=== PATIENT | female | born 1965 | race Caucasian/White ===

== ENCOUNTER 2020-01-10 07:33 | Outpatient (CLI) | payer OTHER, SELFPAY ==
--- NOTE | ~2020-01-10 | MM_ITS ---
EXAMINATION: MM screening abhishek BI w juan m HISTORY: Screening mammogram TECHNIQUE: Craniocaudal and mediolateral oblique 3-D tomosynthesis images were obtained and synthetic 2-D images were generated. CAD analysis was submitted and interpreted. COMPARISON: Comparison to multiple prior studies sequentially, with oldest reviewed study dated 08/11. BREAST PARENCHYMAL COMPOSITION: The breasts are almost entirely fatty. FINDINGS: There is no evidence of suspicious mass, calcification, or architectural distortion to sugg est malignancy in either breast. There has been no suspicious interval change. IMPRESSION: 1. No mammographic evidence of malignancy. 2. Recommend routine screening mammography in one year. BI-RADS Category 1: Negative Reviewed, dictated and finalized at location A.
== END 2020-01-10 07:34 | disposition home or self-care (01) ==
PROVIDERS: PCP Internal Medicine; Visit Provider Internal Medicine
DX: Z12.31 Encounter for screening mammogram for malignant neoplasm of breast (principal)
CPT/HCPCS: 77063; 77067

== ENCOUNTER 2020-05-18 09:56 | Outpatient (CLI) | payer OTHER, SELFPAY ==
--- NOTE | ~2020-05-18 | US_ITS ---
EXAMINATION: US venous doppler LE RT DATE: 05/18/2020 10:28 INDICATION: Right lower limb swelling TECHNIQUE: Rios scale images without and with compression and Doppler images of the right lower extre mity veins were obtained. COMPARISON: None FINDINGS: The right common femoral vein, profunda femoral vein, femoral vein, popliteal vein, peronea l trunk, posterior tibial veins, and greater saphenous vein are patent. IMPRESSION: 1. Patent right lower extremity veins. No evidence of deep venous thrombosis. Reviewed, dictated and finalized at location A. 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
== END 2020-05-18 09:57 | disposition home or self-care (01) ==
PROVIDERS: PCP Internal Medicine; Visit Provider Internal Medicine
DX: M79.661 Pain in right lower leg (principal); M79.89 Other specified soft tissue disorders
CPT/HCPCS: 93971

== ENCOUNTER 2020-09-04 11:17 | Outpatient (CLI) | payer OTHER, SELFPAY ==
[2020-09-04 12:26] LABS: SARS-CoV-2 Ag Negative (Negative)
[2020-09-04 12:26] LABS: Influenza Control Valid (Valid)
[2020-09-05 14:41] LABS: SARS-CoV-2 RNA PCR Negative
== END 2020-09-04 11:18 | disposition home or self-care (01) ==
LOC: CHSLAB 11:19
PROVIDERS: PCP Internal Medicine; Visit Provider Internal Medicine
DX: R53.83 Other fatigue (principal); R09.81 Nasal congestion
CPT/HCPCS: 87426; 87804; C9803; U0003; U0005

== ENCOUNTER → 2020-12-11 02:11 | Outpatient (CLI) | payer OTHER, SELFPAY ==
[2020-12-11 17:04] LABS: SARS-CoV-2 RNA PCR Negative
== END ==
PROVIDERS: PCP Internal Medicine; Visit Provider Surgery
DX: Z01.812 Encounter for preprocedural laboratory examination (principal); Z20.822 Contact with and (suspected) exposure to COVID-19
CPT/HCPCS: C9803; U0003; U0005

== ENCOUNTER 2020-12-14 00:51 | Day surgery (SDC) | payer OTHER, SELFPAY ==
[2020-11-30 10:17] VITALS: BMI 31.3
[2020-12-14 06:46] VITALS: BP 167/76; PULSE 77; RESP 20; TEMP 36.1; O2SAT 99
[2020-12-14] MEDS: LACTATED RINGERS 1,000 ML 150 ML IV CONT (06:54)
--- NOTE | 2020-12-14 07:31 | WPDANESEPPF ---
Anes - Initial Pre Proc Eval Procedure: Operation Date: 12/14/20 08:00 Proposed Procedures p Esophagogastroduodenoscopy - Rayshawn Samuel DO Date/Time: 12/14/20 07:31 Surgeon: Rayshawn Samuel DO Pre Op Diagnosis: dysphagia Patient Data Age: 55 Gender: F Height: 5 ft 6 in Weight: 88.8 kg Last Vital Signs Temp 97.0 F L 12/14/20 06:46 Pulse 77 12/14/20 06:46 Resp 20 12/14/20 06:46 BP 167/76 H 12/14/20 06:46 Pulse Ox 99 12/14/20 06:46 Allergies Allergy/AdvReac Type Severity Reaction Status Date / Time latex Allergy Unknown Verified 12/14/20 06:43 aluminum hydroxide AdvReac Mild GI Verified 12/14/20 06:43 [From Mylanta] Cocktail- Confusion/Tongue Swelling atropine [From ] AdvReac Mild GI Verified 12/14/20 06:43 Cocktail- Confusion/Tongue Swelling calcium carbonate AdvReac Mild GI Verified 12/14/20 06:43 [From Mylanta] Cocktail- Confusion/Tongue Swelling hydrocodone AdvReac Mild Nausea and Verified 12/14/20 06:43 Vomiting hyoscyamine [From ] AdvReac Mild GI Verified 12/14/20 06:43 Cocktail- Confusion/Tongue Swelling lidocaine AdvReac Mild GI Verified 12/14/20 06:43 Cocktail- Confusion/Tongue Swelling magnesium hydroxide AdvReac Mild GI Verified 12/14/20 06:43 [From Mylanta] Cocktail- Confusion/Tongue Swelling phenobarbital [From ] AdvReac Mild GI Verified 12/14/20 06:43 Cocktail- Confusion/Tongue Swelling scopolamine [From ] AdvReac Mild GI Verified 12/14/20 06:43 Cocktail- Confusion/Tongue Swelling simethicone [From Mylanta] AdvReac Mild GI Verified 12/14/20 06:43 Cocktail- Confusion/Tongue Swelling adhesive AdvReac Unknown RASH Verified 12/14/20 06:43 moxifloxacin AdvReac Unknown N&V Verified 12/14/20 06:43 GI COCKTAIL AdvReac Mild CONFUSION, Uncoded 12/14/20 06:43 TONGUE SWELLING Home Medications Medication Instructions Recorded Confirmed Type atorvastatin 40 mg PO HS 11/30/20 11/30/20 History dicyclomine 10 mg PO DAILY PRN 11/30/20 12/14/20 History estradiol 1 mg PO DAILY 11/30/20 12/14/20 History omeprazole 20 mg PO DAILY 11/30/20 11/30/20 History Patient hx anesthesia problems: none Family hx anesthesia problems: none PMFSH Past Medical History Medical History (Updated 12/14/20 @ 07:28 by Shane Mendez MD) GERD (gastroesophageal reflux disease) Hyperlipidemia Social History Social History Alcohol intake: current Drinks per week: 3 Living arrangements: with family Gender identity (if verbalized by the patient): Female Spiritual care concerns: No Anes - Eval Final PreProcedure Day of Procedure 12/14/20 07:31 Patient weight: overweight Heart: regular rate and rhythm Lungs: clear to auscultation Airway: Mallampati scale class II Neurological: alert and oriented Last oral intake: >/= 8 hours ASA classification: II Emergent: no Anesthetic plan: proceed Anesthesia type and monitoring: general GIVS and standard monitoring Informed Consent: The patient's anesthetic plan and its attendant risks and benefits were discussed with the patient/family/POA. Questions were solicited and answers provided to the satisfaction of the patient/family/POA.
--- NOTE | 2020-12-14 07:58 | PM.IMHP ---
H&P: HPI History of Present Illness Date/Time: 12/14/20 07:58 Chief Complaint: dysphagia Narrative: this is a 55-year-old woman who presents with dysphagia with solid foods and pills. She denies any difficulty drinking liquids. She has had this in the past and has previously had dilation done. Does have some occasional epigastric pain and has occasional reflux symptoms. She denies any significant alcohol use and denies tobacco abuse. She does take a daily omeprazole. Review of Systems Review of Systems: All systems reviewed & are unremarkable except as noted in HPI and below Constitutional: Constitutional: Denies chills, Denies fever(s), Denies headache(s) and Denies weight loss Eyes: Eyes: Denies change in vision ENT: Denies dizziness, Denies headache(s), Denies neck mass and Denies throat swelling Cardiovascular: Cardiovascular: Denies chest pain, Denies lightheadedness and Denies dyspnea Respiratory: Respiratory: Denies cough, Denies dyspnea and Denies wheezing Gastrointestinal: Gastrointestinal: Reports as per HPI, Denies change in bowel habits, Denies nausea and Denies vomiting Genitourinary: Genitourinary: Denies hematuria and Denies dysuria Musculoskeletal: Musculoskeletal: Reports as per HPI Integumentary/Breasts: Skin/Breast: Reports as per HPI Neurologic: Denies dizziness and Denies headache(s) Allergic/Immunologic: Allergic/Immunologic: Denies throat swelling and Denies wheezing [facility] Past Medical History Medical History (Updated 12/14/20 @ 08:00 by Rayshawn Samuel DO) GERD (gastroesophageal reflux disease) Hyperlipidemia Social History Social History Alcohol intake: current Drinks per week: 3 Living arrangements: with family Gender identity (if verbalized by the patient): Female Spiritual care concerns: No Meds Home Medications and Allergies Home Medications Medication Instructions Recorded Confirmed Type atorvastatin 40 mg PO HS 11/30/20 11/30/20 History dicyclomine 10 mg PO DAILY PRN 11/30/20 12/14/20 History estradiol 1 mg PO DAILY 11/30/20 12/14/20 History omeprazole 20 mg PO DAILY 11/30/20 11/30/20 History Allergies Allergy/AdvReac Type Severity Reaction Status Date / Time latex Allergy Unknown Verified 12/14/20 06:43 aluminum hydroxide AdvReac Mild GI Verified 12/14/20 06:43 [From Mylanta] Cocktail- Confusion/Tongue Swelling atropine [From ] AdvReac Mild GI Verified 12/14/20 06:43 Cocktail- Confusion/Tongue Swelling calcium carbonate AdvReac Mild GI Verified 12/14/20 06:43 [From Mylanta] Cocktail- Confusion/Tongue Swelling hydrocodone AdvReac Mild Nausea and Verified 12/14/20 06:43 Vomiting hyoscyamine [From ] AdvReac Mild GI Verified 12/14/20 06:43 Cocktail- Confusion/Tongue Swelling lidocaine AdvReac Mild GI Verified 12/14/20 06:43 Cocktail- Confusion/Tongue Swelling magnesium hydroxide AdvReac Mild GI Verified 12/14/20 06:43 [From Mylanta] Cocktail- Confusion/Tongue Swelling phenobarbital [From ] AdvReac Mild GI Verified 12/14/20 06:43 Cocktail- Confusion/Tongue Swelling scopolamine [From ] AdvReac Mild GI Verified 12/14/20 06:43 Cocktail- Confusion/Tongue Swelling simethicone [From Mylanta] AdvReac Mild GI Verified 12/14/20 06:43 Cocktail- Confusion/Tongue Swelling adhesive AdvReac Unknown RASH Verified 12/14/20 06:43 moxifloxacin AdvReac Unknown N&V Verified 12/14/20 06:43 GI COCKTAIL AdvReac Mild CONFUSION, Uncoded 12/14/20 06:43 TONGUE SWELLING Vital Signs Vital Signs - 24 hr 12/14/20 06:46 Temperature 36.1 C L Pulse Rate 77 Respiratory Rate 20 Blood Pressure 167/76 H Pulse Oximetry 99 Exam Const: General: no acute distress and alert Orientation/consciousness: patient oriented x3 HENMT: Head: normocephalic and atraumatic Ears: hearing
[2020-12-14 08:21] VITALS: BP 111/76; PULSE 70; RESP 19; O2SAT 96
[2020-12-14 08:31] VITALS: BP 123/67; PULSE 82; RESP 21; O2SAT 96
[2020-12-14 08:41] VITALS: BP 120/78; PULSE 68; RESP 18; O2SAT 96
== END 2020-12-14 09:00 | disposition home or self-care (01) ==
PROVIDERS: PCP Internal Medicine; Visit Provider Surgery
PROC: 0DJ08ZZ Inspection of Upper Intestinal Tract, Via Natural or Artificial Opening Endoscopic (ICD-10-PCS; CPT 43235; principal; 2020-12-14 08:00)
DX: R13.10 Dysphagia, unspecified (principal); K29.50 Unspecified chronic gastritis without bleeding; K31.7 Polyp of stomach and duodenum; K21.9 Gastro-esophageal reflux disease without esophagitis; E78.5 Hyperlipidemia, unspecified
CPT/HCPCS: 43239; 87081; 88305; J2704; J7120

== ENCOUNTER 2021-02-21 12:48 | Emergency (ER) | payer OTHER, SELFPAY ==
--- NOTE | ~2021-02-21 | XR_ITS ---
EXAMINATION: XR femur RT min 2V INDICATION: Right leg pain TECHNIQUE: Two views of the right femur are obtained on four radiographs COMPARISON: None available FINDINGS: Bone alignment is normal. There is no fracture. Mild osteoarthritis is noted in the knee. IMPRESSION: 1. No acute osseous abnormality. Reviewed, dictated and finalized at location B.
[2021-02-21 12:53] VITALS: BP 124/73; PULSE 67; RESP 20; TEMP 36.3; O2SAT 98
--- NOTE | 2021-02-21 13:04 | ED.LOWEXIN ---
HPI - Extremity Injury (Lower) General Chief Complaint: Extremity Injury, Lower Stated Complaint: back of knee/leg pain Time Seen by Provider: 02/21/21 13:14 Source: patient Mode of arrival: wheelchair Limitations: no limitations History of Present Illness HPI Narrative: 55-year-old woman comes in today complaining of pain in the posterior right upper leg that started just prior to arrival. 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 She has been unable to bear weight since the injury. She states that she has some mild numbness and tingling in her right foot but denies any back pain, knee pain, anterior hip pain, and did not hit her head, lose consciousness or have any other injuries. MD complaint: thigh injury Onset (ago): minute(s) (30) Injury: Right: hip Type of Injury: hyperflexion Place: work Severity: moderate Relieving factors: rest Exacerbating factors: weight bearing, movement and palpation Context: fall Associated symptoms: tingling Other symptoms: none Related Data Home Medications Medication Instructions Recorded Confirmed atorvastatin 40 mg PO HS 11/30/20 02/21/21 dicyclomine 10 mg PO DAILY PRN 11/30/20 02/21/21 estradiol 1 mg PO DAILY 11/30/20 02/21/21 omeprazole 20 mg PO DAILY 11/30/20 02/21/21 amoxicillin 500 mg PO TID 02/21/21 02/21/21 ketoconazole 1 applic TOPICAL BID 02/21/21 02/21/21 valacyclovir 1,000 mg PO TID 02/21/21 02/21/21 Allergies Allergy/AdvReac Type Severity Reaction Status Date / Time latex Allergy Unknown Verified 02/21/21 13:09 aluminum hydroxide AdvReac Mild GI Verified 02/21/21 13:09 [From Mylanta] Cocktail- Confusion/Tongue Swelling atropine [From ] AdvReac Mild GI Verified 02/21/21 13:09 Cocktail- Confusion/Tongue Swelling calcium carbonate AdvReac Mild GI Verified 02/21/21 13:09 [From Mylanta] Cocktail- Confusion/Tongue Swelling hydrocodone AdvReac Mild Nausea and Verified 02/21/21 13:09 Vomiting hyoscyamine [From ] AdvReac Mild GI Verified 02/21/21 13:09 Cocktail- Confusion/Tongue Swelling lidocaine AdvReac Mild GI Verified 02/21/21 13:09 Cocktail- Confusion/Tongue Swelling magnesium hydroxide AdvReac Mild GI Verified 02/21/21 13:09 [From Mylanta] Cocktail- Confusion/Tongue Swelling phenobarbital [From ] AdvReac Mild GI Verified 02/21/21 13:09 Cocktail- Confusion/Tongue Swelling scopolamine [From ] AdvReac Mild GI Verified 02/21/21 13:09 Cocktail- Confusion/Tongue Swelling simethicone [From Mylanta] AdvReac Mild GI Verified 02/21/21 13:09 Cocktail- Confusion/Tongue Swelling adhesive AdvReac Unknown RASH Verified 02/21/21 13:09 moxifloxacin AdvReac Unknown N&V Verified 02/21/21 13:09 GI COCKTAIL AdvReac Mild CONFUSION, Uncoded 02/21/21 13:09 TONGUE SWELLING Review of Systems Review of Systems: All systems reviewed & are unremarkable except as noted in HPI and below ENT: Denies dizziness Cardiovascular: Cardiovascular: Denies chest pain and Denies radiating jaw, neck or arm pain Respiratory: Respiratory: Denies cough and Denies dyspnea Gastrointestinal: Gastrointestinal: Denies nausea and Denies vomiting Genitourinary: Genitourinary: Denies dysuria and Denies urinary incontinence Musculoskeletal: Musculoskeletal: Reports as per HPI, Denies back pain, Denies arthralgias and Denies joint swelling Integumentary/Breasts: Skin/Breast: Denies pruritus, Denies rash and Denies skin ulcer Neurologic: Denies vertigo, Denies dizziness and Denies syncope Hematologic/Lymphatic: Hematologic/Lymphatic: Denies easy bleeding and Denies easy bruising [facility] Past Medical History Medical History (Updated 02/21/21 @ 13:28 by Catarino Aguirre MD) GERD (gastroesophageal reflux disease
[2021-02-21] MEDS: HYDROcodone/acetaminophen (*CRX) 5-325 MG TABLET 1 TAB PO (13:35)
[2021-02-21 14:30] VITALS: BP 131/81; PULSE 63; RESP 20; TEMP 36; O2SAT 95
== END 2021-02-21 14:30 | disposition home or self-care (01) ==
PROVIDERS: Emergency Provider Emergency Medicine; PCP Internal Medicine
DX: S76.311A Strain of muscle, fascia and tendon of the posterior muscle group at thigh level, right thigh, initial encounter (principal); W01.0XXA Fall on same level from slipping, tripping and stumbling without subsequent striking against object, initial encounter
CPT/HCPCS: 73552; 99283; A9270

== ENCOUNTER 2021-03-10 08:40 | Outpatient (CLI) | payer OTHER, SELFPAY ==
--- NOTE | ~2021-03-10 | MR_ITS ---
EXAMINATION: MR knee RT wo con DATE: 03/10/2021 10:12 INDICATION: Right knee pain and swelling post fall 2 1/2 weeks prior. TECHNIQUE: Magnetic resonance imaging (MRI) of the right knee was performed without intravenous contr ast. Sequences included coronal PD-weighted FSE, coronal PD-weighted FS FSE, sagittal T2-weighted FS E, sagittal PD-weighted FS FSE and axial PD weighted fat saturated FSE. COMPARISON: None. FINDINGS: Medial compartment: Medial meniscus is normal. Shallow chondral ulceration and fissuring along the anterior weightbearing medial femoral condyle. Lateral compartment: Lateral meniscus is normal. There is some chondral swelling at the central aspect of the lateral tibi al plateau with mild chondral surface regularity and partial-thickness fissuring at the central to po sterior aspect of the lateral tibial plateau. Partial thickness cartilage loss with smooth chondral s urface along the weightbearing lateral femoral condyle. Patellofemoral compartment: Deep chondral ulceration with subtle underlying cortical irregularity at the central aspect of the pa tellar apical ridge with delaminating tearing extending a few mm from the deep margins of the region of ulceration. Additional deep chondral ulceration with minimal underlying cortical irregularity at t he inferior aspect of the medial trochlea. Ligaments and tendons: Anterior and posterior cruciate ligaments are normal. The medial collateral ligament and fibular margret ateral ligament complex are normal. The extensor mechanism is normal. The visualized medial and later al hamstring tendons as well as the iliotibial band are normal. Fluid: Physiologic amount of fluid in the joint space. 3 mm loose osteochondral body in the recess overlying the anterior root of the lateral meniscus. Osseous/other: Normal marrow signal. No fracture or pathologic marrow replacing process. There is mild edema in the superficial suprapatellar fat pad which can be seen with fat pad impingement syndrome. IMPRESSION: 1. 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 2. Mild edema in the superficial suprapatellar fat pad consistent with fat pad impingement syndrome. Reviewed, dictated and finalized at location A. IMPRESSION: 1. Mild tricompartmental osteoarthritis most notable for high-grade chondromala marvin at the patellar apical ridge and inferior aspect of the medial trochlea. 2. Mild edema in the superficial suprapatellar fat pad consistent with fat pad impingement syndrome.
--- NOTE | ~2021-03-10 | MR_ITS ---
EXAMINATION: MR femur RT wo con DATE: 03/10/2021 10:12 INDICATION: Right thigh pain TECHNIQUE: Magnetic resonance imaging (MRI) of the right thigh/femur was performed without intravenou s contrast. A marker was placed over the mass. Sequences included axial T1-weighted FSE, axial T2-we ighted FS FSE, coronal T1-weighted FSE, coronal T2-weighted FS FSE, sagittal T1-weighted FSE and sagi ttal T2-weighted FS FSE. Precontrast axial T1-weighted FS FSE and post contrast axial, sagittal and c oronal T1-weighted FS FSE were also obtained. COMPARISON: None. FINDINGS: There is a high-grade partial if not complete tear of the right biceps femoris located between the pr oximal and distal myotendinous junctions centered approximately 13 cm above the level of the knee savannah nt line. There is undulating course of the muscle fibers in the distal muscle belly consistent with s ome retraction. There is a small amount of fluid at the site of the tear but no clearly defined corre sponding proximal and distal tear margins are identified to quantitatively assess the degree of retra ction of the torn fibers which is likely on the order of a couple subcentimeter. There is additional feathery muscular edema surrounding an additional partial tear in the semimembranosus muscle belly si tuated between the proximal and distal myotendinous junctions. The tear is centered approximately 17 cm proximal to the level of the knee joint line but also without a clearly defined tear plane. There is normal bone marrow signal throughout with no fracture or pathologic marrow replacing process. The neurovascular structures in the right thyroid unremarkable. IMPRESSION: 1. Moderate to high-grade strains of the right biceps femoris and semimembranosus muscles. Reviewed, dictated and finalized at location A. IMPRESSION: 1. Moderate to high-grade strains of the right biceps femoris and semimembranos us muscles.
== END 2021-03-10 08:41 | disposition home or self-care (01) ==
PROVIDERS: PCP Internal Medicine; Visit Provider Internal Medicine
DX: M79.651 Pain in right thigh (principal); M25.561 Pain in right knee
CPT/HCPCS: 73718; 73721

== ENCOUNTER 2021-03-26 13:11 | Outpatient (CLI) | payer OTHER, SELFPAY ==
--- NOTE | ~2021-03-26 | US_ITS ---
EXAMINATION: US venous doppler LE RT EXAM DATE: 03/26/2021 13:58 INDICATION: Right leg swelling. TECHNIQUE: Multiple grayscale, color flow and Doppler images of the right lower extremity deep venous system were obtained and reviewed. Comparison is made to prior examination from 05/18/2020. FINDINGS: The right common femoral, femoral and profunda veins demonstrate normal color flow, respira tory variation, augmentation and compressibility. Compressibility, color flow confirmed within the r ight popliteal, posterior tibial, peroneal, and greater saphenous veins. IMPRESSION: 1. No right lower extremity deep venous thrombosis. Reviewed, dictated and finalized at location B.
== END 2021-03-26 13:12 | disposition home or self-care (01) ==
PROVIDERS: PCP Internal Medicine
DX: M79.89 Other specified soft tissue disorders (principal)
CPT/HCPCS: 93971

== ENCOUNTER 2021-03-28 16:17 | Outpatient (CLI) | payer OTHER, SELFPAY ==
--- NOTE | ~2021-03-28 | MM_ITS ---
EXAMINATION: MM screening abhishek BI w juan m HISTORY: Screening TECHNIQUE: Craniocaudal and mediolateral oblique 3-D tomosynthesis images were obtained and synthetic 2-D images were generated. CAD analysis was submitted and interpreted. COMPARISON: Comparison to multiple prior studies sequentially, with oldest reviewed study dated 08/31. BREAST PARENCHYMAL COMPOSITION: There are scattered areas of fibroglandular density. FINDINGS: There is no evidence of suspicious mass, calcification, or architectural distortion to sugg est malignancy in either breast. There has been no suspicious interval change. IMPRESSION: 1. No mammographic evidence of malignancy. 2. Recommend routine screening mammography in one year. BI-RADS Category 1: Negative Reviewed, dictated and finalized at location A.
== END 2021-03-28 16:18 | disposition home or self-care (01) ==
LOC: ANHIMG 16:19
PROVIDERS: PCP Internal Medicine; Visit Provider Internal Medicine
DX: Z12.31 Encounter for screening mammogram for malignant neoplasm of breast (principal)
CPT/HCPCS: 77063; 77067

== ENCOUNTER 2021-04-24 15:48 | Outpatient (RCR) | payer OTHER, SELFPAY ==
--- NOTE | 2021-04-24 17:01 | PTOPEVAL ---
Thank you for referring Koki Bell to [facility][Note 3].? The patient is scheduled to be seen for therapy? ____x/week for ___ weeks. Please review, sign, date and return this plan of care LORRAINE. I agree with and certify that the following plan of care is medically necessary. Referring Physician Date Admitting Provider: Attending Provider: Curtis Rocha Referring Provider: *PT Outpatient Evaluation Start: 04/24/21 16:01 Freq: Status: Active Protocol: Document 04/24/21 16:02 ACR (Rec: 04/24/21 17:01 ACR [id number]) Therapy Assessment Status Assessment Status Assessment Status Evaluation Outpatient Past Medical History Neurological History Hx Neurological Disorders No Significant History Cardiovascular History Hx Hypercholesterolemia Yes Respiratory History Hx Respiratory Disorders No Significant History Gastrointestinal History Hx Gastroesophageal Reflux Disease Yes Hx Irritable Bowel Yes Hx Other Gastrointestinal Disorders Yes: rectocele repair Genitourinary History Hx Genitourinary Disorders No Significant History Musculoskeletal History Hx Musculoskeletal Disorders No Significant History Hematological History Hx Hematological Disorders No Significant History Endocrine History Hx Endocrine Disorders No Significant History HEENT History Hx Sinus Problems Yes Integumentary History Hx Skin Disorders No Significant History Psychosocial History Hx Psychiatric Disorders No Significant History Pain History History of Any Previous or Ongoing No Significant History Instance of Pain Anesthesia History Hx Anesthesia Reactions No Significant History Evaluation Information Problem Diagnosis R hamstring partial tear Onset 02/21/21 Subjective Information Patient states that she was Query Text:As Reported By Patient/ walking down the [place] and Family slipped on water and her leg went out in front of her and she fell. Patient states she went to the ER. Patient states she is back to work now with restrictions of sitting when tightness of pain occur. Patient states that bending over to pick something up, getting situated to sleep and drive, navigating steps and prolonged walking/standing are the most difficulty. 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
--- NOTE | 2021-05-23 13:42 | PTOPEVAL ---
Thank you for referring Koki Bell to [facility].? The patient is scheduled to be seen for therapy? ____x/week for ___ weeks. Please review, sign, date and return this plan of care LORRAINE. I agree with and certify that the following plan of care is medically necessary. Referring Physician Date Admitting Provider: Attending Provider: Curtis Rocha Referring Provider: *PT Outpatient Evaluation Start: 04/24/21 16:01 Freq: Status: Active Protocol: Document 05/23/21 07:30 [facility] (Rec: 05/23/21 13:41 [id number] Therapy Assessment Status Assessment Status Assessment Status Re-evaluation Outpatient Past Medical History Neurological History Hx Neurological Disorders No Significant History Cardiovascular History Hx Hypercholesterolemia Yes Respiratory History Hx Respiratory Disorders No Significant History Gastrointestinal History Hx Gastroesophageal Reflux Disease Yes Hx Irritable Bowel Yes Hx Other Gastrointestinal Disorders Yes: rectocele repair Genitourinary History Hx Genitourinary Disorders No Significant History Musculoskeletal History Hx Musculoskeletal Disorders No Significant History Hematological History Hx Hematological Disorders No Significant History Endocrine History Hx Endocrine Disorders No Significant History HEENT History Hx Sinus Problems Yes Integumentary History Hx Skin Disorders No Significant History Psychosocial History Hx Psychiatric Disorders No Significant History Pain History History of Any Previous or Ongoing No Significant History Instance of Pain Anesthesia History Hx Anesthesia Reactions No Significant History Evaluation Information Problem Diagnosis R hamstring partial tear Onset 02/21/21 Subjective Information patient reports she is Query Text:As Reported By Patient/ improving. she reports however Family , she still has pain with lifting and walking. 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 she reports she is back at work, but has to take several rest/sitting breaks. she reports she is not back at full performance, and continues to feel a knot in the R posterior thigh. Pain Assessment Timing of Pain Assessment Timing of Pain Assessment Assessment Pain Scale
== END 2021-06-26 16:13 | disposition home or self-care (01) ==
LOC: CHSPT 15:48
PROVIDERS: PCP Internal Medicine
DX: S76.311A Strain of muscle, fascia and tendon of the posterior muscle group at thigh level, right thigh, initial encounter (principal)
CPT/HCPCS: 97014; 97016; 97110; 97140; 97161; 97530; G0283

== ENCOUNTER 2021-11-21 11:52 | Outpatient (CLI) | payer OTHER, SELFPAY | END 2021-11-21 11:53 | disposition home or self-care (01) | LOC: CHSAUDIO 11:54 | PROVIDERS: PCP Internal Medicine; Visit Provider Internal Medicine | DX: H93.13 Tinnitus, bilateral (principal) | CPT/HCPCS: 92557; 92567 ==

== ENCOUNTER 2021-12-04 14:53 | Outpatient (RCR) | payer OTHER, SELFPAY ==
--- NOTE | 2021-12-04 16:12 | PTOPEVAL ---
Thank you for referring Koki Bell to [facility].? The patient is scheduled to be seen for therapy? __2__x/week for 8 visits. Please review, sign, date and return this plan of care LORRAINE. I agree with and certify that the following plan of care is medically necessary. Referring Physician Date Admitting Provider: Attending Provider: Nazario Carranza MD Referring Provider: *PT Outpatient Evaluation Start: 12/04/21 15:16 Freq: Status: Active Protocol: Document 12/04/21 15:17 LUIS (Rec: 12/04/21 16:11 LUIS [email or web address]) Therapy Assessment Status Assessment Status Assessment Status Evaluation Outpatient Past Medical History Neurological History Hx Neurological Disorders No Significant History Cardiovascular History Hx Hypercholesterolemia Yes Respiratory History Hx Respiratory Disorders No Significant History Gastrointestinal History Hx Gastroesophageal Reflux Disease Yes Hx Irritable Bowel Yes Hx Other Gastrointestinal Disorders Yes: rectocele repair Genitourinary History Hx Genitourinary Disorders No Significant History Musculoskeletal History Hx Musculoskeletal Disorders No Significant History Hematological History Hx Hematological Disorders No Significant History Endocrine History Hx Endocrine Disorders No Significant History HEENT History Hx Sinus Problems Yes Integumentary History Hx Skin Disorders No Significant History Psychosocial History Hx Psychiatric Disorders No Significant History Pain History History of Any Previous or Ongoing No Significant History Instance of Pain Anesthesia History Hx Anesthesia Reactions No Significant History Evaluation Information Problem Diagnosis left sciatica Onset 10/04/21 Subjective Information Pt. reports she developed left Query Text:As Reported By Patient/ buttock and left leg pain and Family numbness about 2 months ago. She reports no change in her symptoms except since give prednisone on 11/30/21. She reports that pain is still present but not as intense. She states that she is getting some pain returning since she is almost done with the prednisone. She states that she has trouble sleeping at night due to pain. she reports pain is most notable after getting up from sitting. She reports that her goal is to
== END 2022-01-16 08:59 | disposition home or self-care (01) ==
LOC: CHSPT 14:53
PROVIDERS: PCP Internal Medicine; Visit Provider Internal Medicine
DX: M54.32 Sciatica, left side (principal)
CPT/HCPCS: 97014; 97110; 97140; 97161; G0283

== ENCOUNTER 2021-12-10 19:45 | Emergency (ER) | payer OTHER, SELFPAY ==
--- NOTE | ~2021-12-10 | CT_ITS ---
EXAMINATION: CT abdomen pelvis wo con DATE: 12/10/2021 20:50 INDICATION: Right lower and left lower quadrant pain. Diverticulitis. Hysterectomy. TECHNIQUE: Computed tomography (CT) of the abdomen and pelvis was performed without intravenous contr ast. The dose-length product was 828.21 mGy-cm. Automated exposure control and iterative reconstruction technique were employed. COMPARISON: CT dated 06/08/2017. FINDINGS: Lung bases are unremarkable. No significant pleural or pericardial effusion. Heart size nor mal. Elevated right diaphragm. The liver, spleen, pancreas, adrenal glands and kidneys are unremarkab le. Gallbladder is present. Nonobstructive bowel gas pattern. There is acute sigmoid diverticulitis w ithout evidence for perforation. There are appendicoliths. No secondary findings to suggest acute john endicitis. No free air or free fluid. Mild lower thoracic and lumbar spondylosis. IMPRESSION: 1. Acute uncomplicated diverticulitis of the sigmoid colon. 2: Appendicoliths. No secondary findings to suggest acute appendicitis. Reviewed, dictated and finalized at location A.
[2021-12-10 20:05] VITALS: BP 142/100; PULSE 92; RESP 18; TEMP 36.3; O2SAT 98
--- NOTE | 2021-12-10 20:37 | ED.GENADULT ---
HPI - General Adult General Chief complaint: Abdominal Pain Stated complaint: thinks she has diverticulitis History of Present Illness HPI narrative: Koki is a 56F with a PMH of GERD, HLD, HTN and diverticulosis that presented to the ED with abdominal pain. It started a few days ago with epigastric pain and diarrhea but then migrated down to her LLQ and is a cramping pain. It feels like a previous episode of diverticulitits. No fevers, chills, N/V, CP or vomiting. Related Data Home Medications Medication Instructions Recorded Confirmed atorvastatin 40 mg tablet 40 mg PO HS 11/30/20 12/10/21 dicyclomine 10 mg capsule 10 mg PO DAILY PRN Abdominal 11/30/20 12/10/21 Discomfort estradiol 1 mg tablet 1 mg PO DAILY 11/30/20 12/10/21 omeprazole 20 mg capsule,delayed 20 mg PO DAILY 11/30/20 12/10/21 release losartan 50 mg-hydrochlorothiazide 1 tablet PO DAILY 12/10/21 12/10/21 12.5 mg tablet Allergies Allergy/AdvReac Type Severity Reaction Status Date / Time latex Allergy Unknown Verified 02/21/21 13:09 aluminum hydroxide AdvReac Mild GI Verified 02/21/21 13:09 [From Mylanta] Cocktail- Confusion/Tongue Swelling atropine [From ] AdvReac Mild GI Verified 02/21/21 13:09 Cocktail- Confusion/Tongue Swelling calcium carbonate AdvReac Mild GI Verified 02/21/21 13:09 [From Mylanta] Cocktail- Confusion/Tongue Swelling hyoscyamine [From ] AdvReac Mild GI Verified 02/21/21 13:09 Cocktail- Confusion/Tongue Swelling lidocaine AdvReac Mild GI Verified 02/21/21 13:09 Cocktail- Confusion/Tongue Swelling magnesium hydroxide AdvReac Mild GI Verified 02/21/21 13:09 [From Mylanta] Cocktail- Confusion/Tongue Swelling phenobarbital [From ] AdvReac Mild GI Verified 02/21/21 13:09 Cocktail- Confusion/Tongue Swelling scopolamine [From ] AdvReac Mild GI Verified 02/21/21 13:09 Cocktail- Confusion/Tongue Swelling simethicone [From Mylanta] AdvReac Mild GI Verified 02/21/21 13:09 Cocktail- Confusion/Tongue Swelling adhesive AdvReac Unknown RASH Verified 02/21/21 13:09 moxifloxacin AdvReac Unknown N&V Verified 02/21/21 13:09 GI COCKTAIL AdvReac Mild CONFUSION, Uncoded 02/21/21 13:09 TONGUE SWELLING Review of Systems Constitutional: Constitutional: Reports no additional constitutional complaints Eyes: Eyes: Reports no additional eye complaints ENT: Reports system reviewed and no additional complaints, except as documented Cardiovascular: Cardiovascular: Reports no additional cardiovascular complaints Respiratory: Respiratory: Reports no additional respiratory complaints Gastrointestinal: Gastrointestinal: Reports as per HPI Genitourinary: Genitourinary: Reports no additional female genitourinary complaints Musculoskeletal: Musculoskeletal: Reports no additional musculoskeletal complaints Integumentary/Breasts: Skin/Breast: Reports system reviewed and no additional complaints, except as docu Neurologic: Reports system reviewed and no additional complaints, except as documented Psychiatric: Psychiatric: Reports no additional psychiatric complaints Endocrine: Endocrine: Reports no additional endocrine complaints Hematologic/Lymphatic: Hematologic/Lymphatic: Reports no additional hematologic/lymphatic complaints Allergic/Immunologic: Allergic/Immunologic: Reports no additional allergic/immunologic complaints [facility] Past Medical History Medical History (Updated 12/10/21 @ 21:43 by Jonathan Green DO) GERD (gastroesophageal reflux disease) Hyperlipidemia Hypertension Surgical History Surgical History (Updated 02/21/21 @ 13:24 by Catarino Aguirre MD) H/O rectocele repair H/O vein stripping H/O: hysterectomy Social History Social History Alcohol intake: current Drinks per week:
[2021-12-10 20:42] LABS: Basophils Absolute Auto 0.04 K/mm3 (0.00-0.10); Basophils Percent Auto 0.3 % (0.0-1.0); Eosinophils Absolute Auto 0.15 K/mm3 (0.02-0.50); Eosinophils Percent Auto 1.3 % (1.0-6.0); Hematocrit 39.9 % (35.0-49.0); Hemoglobin 12.8 g/dL (12.0-15.0); Immature Granulocyte Absolute 0.05 K/mm3 (0.00-0.00); Immature Granulocyte Percent A 0.4 % (0.0-0.0); Lymphocytes Absolute Auto 3.82 K/mm3 (1.10-4.50); Lymphocytes Percent Auto 32.8 % (18.0-42.0); Mean Corpuscular HGB Conc 32.1 g/dL (32.0-36.0); Mean Corpuscular Hemoglobin 28.1 pg (27.0-31.0); Mean Corpuscular Volume 87.5 fL (78.0-102.0); Mean Platelet Volume 10.4 fl (9.2-11.8); Monocytes Absolute Auto 0.88 K/mm3 (0.10-0.90); Monocytes Percent Auto 7.6 % (2.0-11.0); Neutrophils Absolute Auto 6.7 K/mm3 (1.7-7.2); Neutrophils Percent Auto 57.6 % (50.0-70.0); Platelet Count Result 282 K/mm3 (150-420); Red Blood Count 4.56 M/mm3 (4.20-5.40); Red Cell Distribution Width 12.3 % (11.6-14.4); White Blood Count 11.7 K/mm3 (4.8-10.8)
[2021-12-10 20:47] LABS: Add Urine Microscopic? NO; Appearance Urine Clear (Clear); Bilirubin Urine Negative (Negative); Blood Urine Negative (Negative); Color Urine Light Yellow (Yellow); Glucose Urine UA Negative (Negative); Ketones Urine Negative (Negative); Leukocyte Esterase Ur Negative (Negative); Nitrate Urine Negative (Negative); Protein Urine Negative (Negative); Specific Grav Ur <= 1.005 (1.010-1.020); Urobilinogen Urine 0.2 mg/dL (0.2-1.0)
[2021-12-10 21:01] LABS: Alanine Aminotransferase 19 U/L (14-59); Alkaline Phosphatase 81 U/L (46-116); Anion Gap 6 mmol/L (8-16); Aspartate Amino Transferase < 10 U/L (15-37); Bilirubin,Total 0.3 mg/dL (0.00-1.00); Blood Urea Nitrogen 17 mg/dL (7-18); CRP 3.8 mg/dL (0.0-0.9); Calcium 8.7 mg/dL (8.5-10.1); Carbon Dioxide 31 mmol/L (21-32); Chloride 100 mmol/L (98-108); Estimated CRCL calculation 74 ml/min; Estimated Glomerular Filt Rate > 60; Glucose 112 mg/dL (70-99); Lactic Acid Reflex 0.5 mmol/L (0.4-2.0); Lipase 164 U/L (73-393); Osmolality Calculated 286 mOsm/kg (285-295); Potassium 3.7 mmol/L (3.5-5.1); Sodium 137 mmol/L (136-145); Total Protein 7.1 g/dL (6.4-8.2)
[2021-12-10] MEDS: AMOXICILLIN/CLAVULANATE K 875-125 MG TAB 1 TABLET PO (21:28)
[2021-12-10] MEDS: KETOROLAC 30 MG/ML VIAL (*BKC) IM (21:34)
[2021-12-10 21:45] VITALS: BP 129/97; PULSE 74; RESP 20; TEMP 36.7; O2SAT 97
== END 2021-12-10 21:51 | disposition home or self-care (01) ==
PROVIDERS: Emergency Provider Family Medicine; PCP Internal Medicine
DX: K57.92 Diverticulitis of intestine, part unspecified, without perforation or abscess without bleeding (principal)
CPT/HCPCS: 36415; 74176; 80053; 81003; 83605; 83690; 85025; 86140; 96372; 99284; A9270; J1885

== ENCOUNTER 2022-04-04 01:02 | Day surgery (SDC) | payer OTHER, SELFPAY ==
[2022-03-21 13:04] VITALS: BMI 31.6
[2022-04-04 06:25] VITALS: BP 126/79; PULSE 70; RESP 17; TEMP 36.2; O2SAT 97
[2022-04-04] MEDS: LACTATED RINGERS 1,000 ML 150 ML IV CONT (06:36)
--- NOTE | 2022-04-04 07:23 | WPDANESEPPF ---
Anes - Initial Pre Proc Eval Procedure: Operation Date: 04/04/22 07:30 Proposed Procedures p Screening Colonoscopy - Rayshawn Samuel DO Date/Time: 04/04/22 07:23 Surgeon: Rayshawn Samuel DO Pre Op Diagnosis: neoplasm screening Patient Data Age: 56 Gender: F Height: 1.68 m Weight: 85.8 kg Last Vital Signs Temp 97.2 F L 04/04/22 06:25 Pulse 70 04/04/22 06:25 Resp 17 04/04/22 06:25 BP 126/79 04/04/22 06:25 Pulse Ox 97 04/04/22 06:25 O2 Del Method Room Air 04/04/22 06:25 Allergies Allergy/AdvReac Type Severity Reaction Status Date / Time latex Allergy Unknown Verified 04/04/22 06:23 aluminum hydroxide AdvReac Mild GI Verified 04/04/22 06:23 [From Mylanta] Cocktail- Confusion/Tongue Swelling atropine [From ] AdvReac Mild GI Verified 04/04/22 06:23 Cocktail- Confusion/Tongue Swelling calcium carbonate AdvReac Mild GI Verified 04/04/22 06:23 [From Mylanta] Cocktail- Confusion/Tongue Swelling hyoscyamine [From ] AdvReac Mild GI Verified 04/04/22 06:23 Cocktail- Confusion/Tongue Swelling lidocaine AdvReac Mild GI Verified 04/04/22 06:23 Cocktail- Confusion/Tongue Swelling magnesium hydroxide AdvReac Mild GI Verified 04/04/22 06:23 [From Mylanta] Cocktail- Confusion/Tongue Swelling phenobarbital [From ] AdvReac Mild GI Verified 04/04/22 06:23 Cocktail- Confusion/Tongue Swelling scopolamine [From ] AdvReac Mild GI Verified 04/04/22 06:23 Cocktail- Confusion/Tongue Swelling simethicone [From Mylanta] AdvReac Mild GI Verified 04/04/22 06:23 Cocktail- Confusion/Tongue Swelling adhesive AdvReac Unknown RASH Verified 04/04/22 06:23 moxifloxacin AdvReac Unknown N&V Verified 04/04/22 06:23 GI COCKTAIL AdvReac Mild CONFUSION, Uncoded 04/04/22 06:23 TONGUE SWELLING Home Medications Medication Instructions Recorded Confirmed Type atorvastatin 40 mg tablet 40 mg PO HS 11/30/20 03/21/22 History dicyclomine 10 mg capsule 10 mg PO DAILY PRN Abdominal 11/30/20 03/21/22 History Discomfort estradiol 1 mg tablet 1 mg PO DAILY 11/30/20 03/21/22 History omeprazole 20 mg capsule,delayed 20 mg PO DAILY 11/30/20 03/21/22 History release losartan 50 mg-hydrochlorothiazide 1.5 tablet PO DAILY 12/10/21 03/21/22 History 12.5 mg tablet Patient hx anesthesia problems: none Family hx anesthesia problems: none Results Review: All pre-operative results and documents have been reviewed as part of the pre-operative evaluation. [facility] Past Medical History Medical History (Updated 12/11/21 @ 00:00 by Geoffrey Barrios) GERD (gastroesophageal reflux disease) Hyperlipidemia Hypertension Surgical History Surgical History (Updated 02/21/21 @ 13:24 by Catarino Aguirre MD) H/O rectocele repair H/O vein stripping H/O: hysterectomy Social History Social History Smoking status: Former smoker Alcohol intake: current Drinks per week: 3 Substance use type: does not use Living arrangements: with family Gender identity (if verbalized by the patient): Female Spiritual care concerns: No Anes - Eval Final PreProcedure Day of Procedure 04/04/22 07:23 Patient weight: obese Heart: regular rate and rhythm Lungs: clear to auscultation Airway: Mallampati scale class II Neurological: alert and oriented Last oral intake: >/= 8 hours ASA classification: III Emergent: no Anesthetic plan: proceed Anesthesia type and monitoring: general GIVS and standard monitoring Results Review: All pre-operative results and documents have been reviewed as part of the pre-operative evaluation. Informed Consent: The patient's anesthetic plan and its attendant risks and benefits were discussed with the patient/family/POA. Questions were solicited and answers
--- NOTE | 2022-04-04 07:34 | PM.IMHP ---
H&P: HPI History of Present Illness Date/Time: 04/04/22 07:34 Chief Complaint: History of colon polyps Narrative: this is a 56-year-old woman who presents for colonoscopy. Her last colonoscopy was 5 years ago and a polyp was removed at that time. She also has a history of diverticulitis and last had an uncomplicated episode about 4 months ago. She denies any hematochezia or melena. She denies any family cancer. Review of Systems Review of Systems: All systems reviewed & are unremarkable except as noted in HPI and below Constitutional: Constitutional: Denies chills, Denies fever(s), Denies headache(s) and Denies weight loss Eyes: Eyes: Denies change in vision ENT: Denies dizziness, Denies headache(s), Denies neck mass and Denies throat swelling Cardiovascular: Cardiovascular: Denies chest pain, Denies lightheadedness and Denies dyspnea Respiratory: Respiratory: Denies cough, Denies dyspnea and Denies wheezing Gastrointestinal: Gastrointestinal: Denies abdominal pain, Denies change in bowel habits, Denies nausea and Denies vomiting Genitourinary: Genitourinary: Denies hematuria and Denies dysuria Musculoskeletal: Musculoskeletal: Reports as per HPI Integumentary/Breasts: Skin/Breast: Reports as per HPI Neurologic: Denies dizziness and Denies headache(s) Allergic/Immunologic: Allergic/Immunologic: Denies throat swelling and Denies wheezing [facility] Past Medical History Medical History (Updated 04/04/22 @ 07:35 by Rayshawn Samuel DO) GERD (gastroesophageal reflux disease) Hyperlipidemia Hypertension Surgical History Surgical History (Updated 02/21/21 @ 13:24 by Catarino Aguirre MD) H/O rectocele repair H/O vein stripping H/O: hysterectomy Social History Social History Smoking status: Former smoker Alcohol intake: current Drinks per week: 3 Substance use type: does not use Living arrangements: with family Gender identity (if verbalized by the patient): Female Spiritual care concerns: No Meds Home Medications and Allergies Home Medications Medication Instructions Recorded Confirmed Type atorvastatin 40 mg tablet 40 mg PO HS 11/30/20 03/21/22 History dicyclomine 10 mg capsule 10 mg PO DAILY PRN Abdominal 11/30/20 03/21/22 History Discomfort estradiol 1 mg tablet 1 mg PO DAILY 11/30/20 03/21/22 History omeprazole 20 mg capsule,delayed 20 mg PO DAILY 11/30/20 03/21/22 History release losartan 50 mg-hydrochlorothiazide 1.5 tablet PO DAILY 12/10/21 03/21/22 History 12.5 mg tablet Allergies Allergy/AdvReac Type Severity Reaction Status Date / Time latex Allergy Unknown Verified 04/04/22 06:23 aluminum hydroxide AdvReac Mild GI Verified 04/04/22 06:23 [From Mylanta] Cocktail- Confusion/Tongue Swelling atropine [From ] AdvReac Mild GI Verified 04/04/22 06:23 Cocktail- Confusion/Tongue Swelling calcium carbonate AdvReac Mild GI Verified 04/04/22 06:23 [From Mylanta] Cocktail- Confusion/Tongue Swelling hyoscyamine [From ] AdvReac Mild GI Verified 04/04/22 06:23 Cocktail- Confusion/Tongue Swelling lidocaine AdvReac Mild GI Verified 04/04/22 06:23 Cocktail- Confusion/Tongue Swelling magnesium hydroxide AdvReac Mild GI Verified 04/04/22 06:23 [From Mylanta] Cocktail- Confusion/Tongue Swelling phenobarbital [From ] AdvReac Mild GI Verified 04/04/22 06:23 Cocktail- Confusion/Tongue Swelling scopolamine [From ] AdvReac Mild GI Verified 04/04/22 06:23 Cocktail- Confusion/Tongue Swelling simethicone [From Mylanta] AdvReac Mild GI Verified 04/04/22 06:23 Cocktail- Confusion/Tongue Swelling adhesive AdvReac Unknown RASH Verified 04/04/22 06:23 moxifloxacin AdvReac Unknown N&V Verified 04/04/22 06:23 GI COCKTAIL AdvReac Mild CONFUSION, Uncoded
[2022-04-04 07:58] VITALS: BP 109/73; PULSE 72; RESP 19; O2SAT 97
[2022-04-04 08:08] VITALS: BP 106/74; PULSE 68; RESP 20; O2SAT 98
[2022-04-04 08:18] VITALS: BP 122/82; PULSE 62; RESP 20; O2SAT 98
== END 2022-04-04 08:28 | disposition home or self-care (01) ==
PROVIDERS: PCP Internal Medicine; Visit Provider Surgery
PROC: 0DJD8ZZ Inspection of Lower Intestinal Tract, Via Natural or Artificial Opening Endoscopic (ICD-10-PCS; CPT 45378; principal; 2022-04-04 07:30)
DX: Z12.11 Encounter for screening for malignant neoplasm of colon (principal); K63.5 Polyp of colon; K57.30 Diverticulosis of large intestine without perforation or abscess without bleeding; K21.9 Gastro-esophageal reflux disease without esophagitis; E78.5 Hyperlipidemia, unspecified; I10 Essential (primary) hypertension; Z87.891 Personal history of nicotine dependence; E66.9 Obesity, unspecified; Z68.30 Body mass index [BMI] 30.0-30.9, adult
CPT/HCPCS: 45378; J2704; J7120

== ENCOUNTER 2022-05-23 07:37 | Outpatient (CLI) | payer OTHER, SELFPAY ==
--- NOTE | ~2022-05-23 | MM_ITS ---
EXAMINATION: MM screening [facility] BI w juan m HISTORY: Screening mammogram TECHNIQUE: Craniocaudal and mediolateral oblique 3-D tomosynthesis images were obtained and synthetic 2-D images were generated. CAD analysis was submitted and interpreted. COMPARISON: 03/28/2021, 01/10/2020, 07/31/2018 bilateral screening mammogram examinations BREAST PARENCHYMAL COMPOSITION: There are scattered areas of fibroglandular density. FINDINGS: There is no evidence of suspicious mass, calcification, or architectural distortion to sugg est malignancy in either breast. There has been no suspicious interval change. IMPRESSION: 1. No mammographic evidence of malignancy. 2. Recommend routine screening mammography in one year. BI-RADS Category 1: Negative Reviewed, dictated and finalized at location A. ICIDE CHEMIST
== END 2022-05-23 07:38 | disposition home or self-care (01) ==
PROVIDERS: PCP Internal Medicine; Visit Provider Internal Medicine
DX: Z12.31 Encounter for screening mammogram for malignant neoplasm of breast (principal)
CPT/HCPCS: 77063; 77067

== ENCOUNTER 2022-08-28 16:56 | Outpatient (CLI) | payer OTHER, SELFPAY ==
--- NOTE | ~2022-08-28 | CT_ITS ---
EXAMINATION: CT abdomen pelvis w con DATE: 08/28/2022 18:35 INDICATION: acute abdominal pelvis pain TECHNIQUE: Computed tomography (CT) of the abdomen and pelvis was performed with 100 mL Omnipaque-350 intravenous contrast. Automated exposure control and iterative reconstruction technique were employe d. The dose-length product was 980.40 mGy-cm. COMPARISON: 11/15/2021. FINDINGS: Lower thorax: Unremarkable Liver: Normal. Biliary/Gallbladder: Gallbladder is normal. No bile duct dilation. Pancreas: No mass or duct dilation. Spleen: Normal. Adrenals:No mass. Kidneys: No mass, stone, or hydronephrosis. GI tract: No small or large bowel dilation. Normal appendix. Diverticulosis. Inflammatory changes not ed involving the single sigmoid diverticulum. Pericolonic inflammatory change at the distal sigmoid, without free air or fluid collection. Mesentery/Peritoneum: No ascites, mass, or free air. Retroperitoneum: No mass. Atherosclerotic abdominal aortic and/or arterial calcifications. Pelvis: Surgically absent uterus. Soft Tissues: Soft tissues and body wall unremarkable. Bones: IMPRESSION: Acute uncomplicated distal sigmoid diverticulitis. Reviewed, dictated and finalized at location K. LER OPERATOR
[2022-08-28 17:17] LABS: Basophils Absolute Auto 0.07 K/mm3 (0.00-0.10); Basophils Percent Auto 0.7 % (0.0-1.0); Eosinophils Absolute Auto 0.25 K/mm3 (0.02-0.50); Eosinophils Percent Auto 2.6 % (1.0-6.0); Hematocrit 39.9 % (35.0-49.0); Immature Granulocyte Absolute 0.02 K/mm3 (0.00-0.00); Immature Granulocyte Percent A 0.2 % (0.0-0.0); Lymphocytes Absolute Auto 4.06 K/mm3 (1.10-4.50); Lymphocytes Percent Auto 42.9 % (18.0-42.0); Mean Corpuscular HGB Conc 32.6 g/dL (32.0-36.0); Mean Corpuscular Hemoglobin 28.1 pg (27.0-31.0); Mean Corpuscular Volume 86.4 fL (78.0-102.0); Mean Platelet Volume 10.8 fl (9.2-11.8); Monocytes Absolute Auto 0.78 K/mm3 (0.10-0.90); Monocytes Percent Auto 8.2 % (2.0-11.0); Neutrophils Absolute Auto 4.3 K/mm3 (1.7-7.2); Neutrophils Percent Auto 45.4 % (50.0-70.0); Platelet Count Result 289 K/mm3 (150-420); Red Blood Count 4.62 M/mm3 (4.20-5.40); Red Cell Distribution Width 12.2 % (11.6-14.4); White Blood Count 9.5 K/mm3 (4.8-10.8)
[2022-08-28 17:52] LABS: Alanine Aminotransferase 23 U/L (14-59); Albumin Level 3.5 g/dL (3.4-5.0); Alkaline Phosphatase 101 U/L (46-116); Anion Gap 4 mmol/L (8-16); Aspartate Amino Transferase 16 U/L (15-37); Bilirubin,Total 0.3 mg/dL (0.00-1.00); Blood Urea Nitrogen 14 mg/dL (7-18); Calcium 8.9 mg/dL (8.5-10.1); Carbon Dioxide 33 mmol/L (21-32); Chloride 96 mmol/L (98-108); Estimated Glomerular Filt Rate > 60; Glucose 96 mg/dL (70-99); Osmolality Calculated 276 mOsm/kg (285-295); Potassium 3.7 mmol/L (3.5-5.1); Sodium 133 mmol/L (136-145); Total Protein 7.6 g/dL (6.4-8.2)
[2022-08-28 18:17] LABS: Add Urine Microscopic? NO; Appearance Urine Clear (Clear); Bilirubin Urine Negative (Negative); Blood Urine Negative (Negative); Color Urine Light Yellow (Yellow); Glucose Urine UA Negative (Negative); Ketones Urine Negative (Negative); Leukocyte Esterase Ur Negative LEU/UL (Negative); Nitrate Urine Negative (Negative); Protein Urine Negative (Negative); Specific Grav Ur <= 1.005 (1.010-1.020); Urobilinogen Urine 0.2 mg/dL (0.2-1.0)
== END 2022-08-28 16:57 | disposition home or self-care (01) ==
PROVIDERS: PCP Internal Medicine; Visit Provider Internal Medicine
DX: R10.32 Left lower quadrant pain (principal); K57.92 Diverticulitis of intestine, part unspecified, without perforation or abscess without bleeding
CPT/HCPCS: 36415; 74177; 80053; 81003; 85025; Q9967

== ENCOUNTER 2022-09-30 11:37 | Outpatient (CLI) | payer OTHER, SELFPAY ==
--- NOTE | ~2022-09-30 | NM_ITS ---
EXAMINATION: NM hepatobiliary w pharm DATE: 09/30/2022 14:28 INDICATION: Right upper quadrant abdominal pain COMPARISON: None. TECHNIQUE: 6.0 mCi Tc-99m mebrofenin (Choletec) was administered intravenously. Scintigraphic images of the abdomen were obtained for one hour. 1.7 mcg sincalide (Kinevac) was administered by slow intr avenous infusion, and imaging was continued for 30 minutes. Gallbladder ejection fraction was calcula lai by the technologist. FINDINGS: There is normal clearance of radiotracer from the blood pool. There is homogeneous tracer uptake by t he liver. Activity progresses to the gallbladder and bowel. The gallbladder ejection fraction (GBEF) is 76% (normal 10-90%, but most patient with gallbladder dysfunction have GBEF < 35% which does over lap with the normal range). IMPRESSION: 1. Normal hepatobiliary scan. Reviewed, dictated and finalized at location A.
== END 2022-09-30 11:38 | disposition home or self-care (01) ==
LOC: CHSIMG 11:38
PROVIDERS: PCP Internal Medicine; Visit Provider Internal Medicine
DX: R10.11 Right upper quadrant pain (principal)
CPT/HCPCS: 78227; A9537; J2805

== ENCOUNTER 2022-10-22 07:56 | Outpatient (CLI) | payer OTHER, SELFPAY ==
--- NOTE | ~2022-10-22 | NM_ITS ---
EXAM: NM gastric emptying study DATE: 10/22/2022 12:59 INDICATION: Postprandial nausea. TECHNIQUE: A gastric emptying study was performed using the methodology of Adam MONROE, et al. J Nucl Med 2007; 48:568-572. The patient was given a meal consisting of 2 scrambled eggs labeled with 1.023 mCi Tc-99m sulfur colloid, 2 slices of toast, two packages of jam, and approximately 120 mL of water . Simultaneous anterior and posterior 1-min images of the abdomen were obtained with the patient supi ne at multiple time points over a total period of 4 hours. The geometric mean of anterior and posteri or views was determined, and the percentage retention was calculated for each time point. COMPARISON: CT abdomen and pelvis 08/28/2022 FINDINGS: Gastric retention of the radiotracer-labeled meal was 51%, 26%, and 2% at the 1-hour, 2-ho ur, and 4-hour time points, respectively. With this technique, apparent rapid gastric emptying is sug gested by <30% gastric retention at 1 hour. Delayed gastric emptying is defined by gastric retention of >90% at 1 hour, >60% retention at 2 hours, or >10% retention at 4 hours. IMPRESSION: 1. Normal gastric emptying. Reviewed, dictated and finalized at location A. IMPRESSION: 1. Normal gastric emptying.
== END 2022-10-22 07:57 | disposition home or self-care (01) ==
PROVIDERS: PCP Internal Medicine; Visit Provider Nurse Practitioner Family
DX: R11.0 Nausea (principal)
CPT/HCPCS: 78264; A9541

== ENCOUNTER 2023-05-27 12:38 | Outpatient (CLI) | payer OTHER, SELFPAY ==
--- NOTE | ~2023-05-27 | MM_ITS ---
EXAMINATION: MM screening [facility] BI w juan m HISTORY: Screening mammogram TECHNIQUE: Craniocaudal and mediolateral oblique 3-D tomosynthesis images were obtained and synthetic 2-D images were generated. CAD analysis was submitted and interpreted. COMPARISON: 05/23/2022, 03/28/2021, 01/10/2020 BREAST PARENCHYMAL COMPOSITION: There are scattered areas of fibroglandular density. FINDINGS: RIGHT BREAST: No suspicious mass, calcification, or architectural distortion are identified to sugges t malignancy. There has been no suspicious interval change. LEFT BREAST: There is a mass in the anterior third of the outer breast 3 cm from the nipple at approx imately 3:00. IMPRESSION: 1. Left breast mass. 2. Additional mammographic views and possible breast ultrasound are recommended. BI-RADS Category 0: Incomplete: Needs additional imaging evaluation. Reviewed, dictated and finalized at location A. WRITING EXPERT IMPRESSION: 1. Left breast mass. 2. Additional mammographic views and possible breast ultrasound are recommended . BI-RADS Category 0: Incomplete: Needs additional imaging evaluation.
--- NOTE | ~2023-05-27 | DEXA_ITS ---
Bone Density Report Name: NAYA GARCIA Age: 57 Sex: Female Ethnicity: White Date of : 1965 Indication: postmenopausal; screening for osteoporosis; height loss; inflammatory bowel disease; hysterectomy; Referring Provider: Nazario Carranza Study: Bone densitometry was performed. Exam Date: May 27, 2023 Accession number: [id number] Bone Density: Region BMD T-score Z-score Classification AP Spine(L1, L2, L3) 1.122 0.9 2.0 Normal Femoral Neck (Left) 0.766 -0.8 0.3 Normal Total Hip (Left) 0.966 0.2 0.9 Normal Femoral Neck (Right) 0.817 -0.3 0.8 Normal Total Hip (Right) 1.010 0.6 1.3 Normal Femoral Neck Mean 0.792 -0.5 0.6 Normal Total Hip Mean 0.988 0.4 1.1 Normal World Health Organization criteria for BMD impression classify patients as: Normal (T-score at or above -1.0), Osteopenia (T-score between -1.0 and -2.5), or Osteoporosis (T-score at or below -2.5). 10-year Fracture Risk: FRAX not reported because: All T-scores for Spine Total, Hip Total, Femoral Neck at or above -1.0 Clinical Information Provided by Patient: Has used the following medications: Vitamin D, Calcium Has the following medical conditions: Inflammatory bowel diseases, Hysterectomy Patient maximum height was 67.5 Menopause Age: 44 No regular weight bearing exercise Does not regularly consume dairy products Drinks caffeinated beverages Onset of menses at age 14 Number of children 1 Impression: The patient has normal bone mass. Discussion: BONE DENSITY IS ABOVE THE MINIMUM DESIRABLE LEVEL AT ALL SKELETAL SITES TESTED. This patient?s bone mineral density is above the minimum desirable level (T-score -1.0 or better) at all sites measured. The patient should follow a healthful lifestyle (good nutrition with adequate calcium and vitamin D, and appropriate weight-bearing exercise). Follow-Up: Consider repeating this study in 5 years or sooner if there is some new clinical indication. Reported by: Dr. Agustin Valle on 05/27/2023 1:12:00 PM. Reviewed, dictated and finalized at location [facility]
== END 2023-05-27 12:39 | disposition home or self-care (01) ==
LOC: CHSIMG 12:42
PROVIDERS: PCP Internal Medicine; Visit Provider Internal Medicine
DX: Z12.31 Encounter for screening mammogram for malignant neoplasm of breast (principal); Z78.0 Asymptomatic menopausal state; R92.8 Other abnormal and inconclusive findings on diagnostic imaging of breast
CPT/HCPCS: 77063; 77067; 77080

== ENCOUNTER 2023-05-30 09:21 | Outpatient (CLI) | payer OTHER, SELFPAY ==
--- NOTE | ~2023-05-30 | MMUS_ITS ---
EXAMINATION: MM diagnostic abhishek LT w juan m, US breast LT limited HISTORY: Left breast mass on screening mammogram TECHNIQUE: Additional 3-D tomosynthesis images of the left breast were performed and synthetic 2-D im ages were generated. CAD analysis was submitted and interpreted. High resolution limited left breast ultrasound was performed. COMPARISON: 05/27/2023, 05/23/2022, 03/28/2021 FINDINGS: MAMMOGRAPHIC FINDINGS: There is a 7 mm oval, circumscribed, equal density mass in the anterior third of the upper outer quad rant of the breast at the 2:00 location, 3.5 cm from the nipple. No suspicious calcification or archi tectural distortion are identified. ULTRASOUND: There is a 7 mm x 4 mm cyst of the left breast at the 2:00 location corresponding to the mammographic finding in question. No suspicious cystic or solid mass is identified. IMPRESSION: 1. No mammographic or sonographic evidence of malignancy. 2. Recommend routine screening mammography in one year. BI-RADS Category 2: Benign finding(s). Reviewed, dictated and finalized at location A. K TAKER IMPRESSION: 1. No mammographic or sonographic evidence of malignancy. 2. Recommend routine screening mammography in one year. BI-RADS Category 2: Benign finding(s).
== END 2023-05-30 09:22 | disposition home or self-care (01) ==
LOC: CHSIMG 09:22
PROVIDERS: PCP Internal Medicine; Visit Provider Internal Medicine
DX: R92.8 Other abnormal and inconclusive findings on diagnostic imaging of breast (principal)
CPT/HCPCS: 76642; 77061; 77065; G0279

== ENCOUNTER 2023-08-13 13:57 | Outpatient (CLI) | payer OTHER, MEDICAID, SELFPAY ==
--- NOTE | 2023-08-13 14:03 | ECG_ITS ---
Measurements Intervals [place] Rate: 70 P: 56 OH: 166 QRS: 30 QRSD: 89 T: 22 QT: 401 QTc: 434 Interpretive Statements SINUS RHYTHM LOW QRS VOLTAGE IN PRECORDIAL LEADS MINIMAL Q WAVES- INFERIOR LEADS BORDERLINE ECG NO PREVIOUS ECG AVAILABLE FOR COMPARISON Electronically Signed On 08-13-2023 14:44:51 [employer] by Edwin Hopkins D.O.
[2023-08-13 15:35] LABS: Anion Gap 8 mmol/L (8-16); Blood Urea Nitrogen 18 mg/dL (7-18); Calcium 8.8 mg/dL (8.5-10.1); Carbon Dioxide 31 mmol/L (21-32); Chloride 100 mmol/L (98-108); Estimated Glomerular Filt Rate > 60; Glucose 103 mg/dL (70-99); Osmolality Calculated 289 mOsm/kg (285-295); Potassium 4.3 mmol/L (3.5-5.1); Sodium 139 mmol/L (136-145)
== END 2023-08-13 13:58 | disposition home or self-care (01) ==
PROVIDERS: PCP Internal Medicine; Visit Provider Anesthesiology
DX: Z01.818 Encounter for other preprocedural examination (principal); I10 Essential (primary) hypertension; Z79.899 Other long term (current) drug therapy
CPT/HCPCS: 36415; 80048; 93005

== ENCOUNTER 2023-08-19 01:35 | Day surgery (SDC) | payer OTHER, MEDICAID, SELFPAY ==
[2023-08-08 11:47] VITALS: BMI 32.1
--- NOTE | 2023-08-08 11:52 | PC.NURSE ---
Report to the Outpatient Waiting Room, entrance under the green pavilion located off [facility], at time 0915 on date 08/19/23. Planned Procedure Time: 1115. Time changes happen often and if your time is changed the preop area will call you the afternoon before. - You and your visitor will be asked to self-screen and do not enter if you have any COVID symptoms. - A mask is optional within the hospital at this time. Patients may have clear liquids (water, carbonated beverages, clear teas, apple juice) until 3 hours prior to surgery with a maximum of 20 ounces. - No food from midnight until time of surgery Take the following medications with a SIP of water the morning of surgery: ESCITALOPRAM DO NOT STOP ANY OF YOUR OTHER PRESCRIPTION MEDICATIONS PRIOR TO SURGERY ?EXCEPT THE FOLLOWING Medications to discontinue per physician: VITAMINS/SUPPLEMENTS Date to take last dose: 08/15/23 Please no make-up, nail djiboutian, hairspray, perfume, deodorant, or body powder the day of surgery. No jewelry (including any body piercings) or valuables the day of surgery, leave them at home. Please take a shower or bath the night before, or the morning of, surgery with an antibacterial soap. Wear comfortable, loose fitting clothing. - Jewelry must be removed prior to entering the operating room. Rings and piercings that are not removed may be cut off. - The hospital will not accept responsibility for valuables. - Please leave all valuables, including medications, at home the day of surgery. If you are going home after surgery, a licensed cat driver must drive you home. - NO public transportation without another adult if you receive anesthesia. - We recommend that an adult stay with you for 24 hours following discharge. - We also recommend that you do not drive, make important decision, drink alcoholic beverages, or take any drugs that were not prescribed by your health care provider for at least 24 hours after your discharge time. Follow any additional instructions given to you from your surgeon. If you or anyone in your household have experienced Covid symptoms in the past week, please notify your surgeon or the nurse liaison at the phone number below for possible testing. Telephone instructions given to PT - NAYA GARCIA and asked if any additional questions and then verbalized understanding. Patient advised to call surgeon office or pre surgery nurse liaison [phone] if any additional questions.
--- NOTE | 2023-08-17 16:22 | PM.IMHP ---
H&P: HPI History of Present Illness Date/Time: 08/17/23 16:22 Chief Complaint: recurrent tonsillitis Narrative: planned procedure Review of Systems Review of Systems: All systems reviewed & are unremarkable except as noted in HPI and below [facility] [place] Past Medical History Medical History Fullness after eating GERD (gastroesophageal reflux disease) Hiatal hernia Hyperlipidemia Hypertension Mixed irritable bowel syndrome Postprandial nausea RUQ pain Surgical History Surgical History H/O rectocele repair H/O vein stripping H/O: hysterectomy Social History Social History Smoking status: Never smoker Alcohol intake: current Drinks per week: 3 Alcohol use details: 2/MONTH Substance use: never Substance use type: does not use Do You Feel Safe in your Home?: No Lack of Transportation: No Lack of Food: Never True Current Housing: I Have Housing Concerned About Future Housing: No Difficulty Paying Gas/Electric Bills: No Difficulty Paying for Meds: No Currently Unemployed: No Education: High School Diploma/GED Difficulty w/ Childcare or Family Care: No Living arrangements: with family Gender identity (if verbalized by the patient): Female Spiritual care concerns: No Meds Home Medications and Allergies Home Medications Medication Instructions Recorded Confirmed Type atorvastatin 40 mg tablet 40 mg PO HS 11/30/20 08/08/23 History dicyclomine 10 mg capsule 10 mg PO DAILY PRN Abdominal 11/30/20 08/08/23 History Discomfort estradiol 1 mg tablet 1 mg PO DAILY 11/30/20 08/08/23 History omeprazole 20 mg capsule,delayed 20 mg PO DAILY 11/30/20 08/08/23 History release losartan 50 mg-hydrochlorothiazide 1.5 tablet PO DAILY 12/10/21 08/08/23 History 12.5 mg tablet calcium carbonate 600 mg calcium 600 mg PO DAILY 10/09/22 08/08/23 History (1,500 mg) tablet (Calcium) lactobacillus combination no.9 4 4,000 mmu cells PO DAILY 10/09/22 08/08/23 History billion cell capsule (Adult 50 Plus Probiotic) magnesium 200 mg tablet 200 mg PO DAILY 10/09/22 08/08/23 History omega 2-dvn-xah-fish oil 60 mg-90 1 cap PO DAILY 10/09/22 08/08/23 History mg-500 mg capsule (Fish Oil) escitalopram oxalate 10 mg tablet 10 mg PO DAILY 08/08/23 08/08/23 History Allergies Allergy/AdvReac Type Severity Reaction Status Date / Time latex Allergy Rash Verified 08/08/23 11:45 aluminum hydroxide AdvReac Mild GI Verified 08/08/23 11:45 [From Mylanta] Cocktail- Confusion/Tongue Swelling atropine [From ] AdvReac Mild GI Verified 08/08/23 11:45 Cocktail- Confusion/Tongue Swelling calcium carbonate AdvReac Mild GI Verified 08/08/23 11:45 [From Mylanta] Cocktail- Confusion/Tongue Swelling hyoscyamine [From ] AdvReac Mild GI Verified 08/08/23 11:45 Cocktail- Confusion/Tongue Swelling lidocaine AdvReac Mild GI Verified 08/08/23 11:45 Cocktail- Confusion/Tongue Swelling magnesium hydroxide AdvReac Mild GI Verified 08/08/23 11:45 [From Mylanta] Cocktail- Confusion/Tongue Swelling phenobarbital [From ] AdvReac Mild GI Verified 08/08/23 11:45 Cocktail- Confusion/Tongue Swelling scopolamine [From ] AdvReac Mild GI Verified 08/08/23 11:45 Cocktail- Confusion/Tongue Swelling simethicone [From Mylanta] AdvReac Mild GI Verified 08/08/23 11:45 Cocktail- Confusion/Tongue Swelling adhesive AdvReac Unknown RASH Verified 08/08/23 11:45 moxifloxacin AdvReac Unknown N&V Verified 08/08/23 11:45 GI COCKTAIL AdvReac Mild CONFUSION, Uncoded 08/08/23 11:45 TONGUE SWELLING Exam Narrative: chronic appearing tonsils Assessment and Plan Assessment a
[2023-08-19] VITALS (7 sets, daily range): BP systolic 107–147; BP diastolic 64–82; PULSE 52–65; RESP 12–18; TEMP 36.3–36.6; O2SAT 94–100
--- NOTE | 2023-08-19 07:16 | WPDHPUPDATE1 ---
History and Physical Update Update Date/Time: 08/19/23 07:16 History and Physical has been reviewed, including an updated exam of the patient. There are NO changes in the patient's condition. Risks, benefits, and alternatives have been discussed and questions answered. Patient agrees to proceed with procedure.
[2023-08-19] MEDS: ACETAMINOPHEN 500 MG TABLET 1000 MG PO (09:23)
[2023-08-19] MEDS: LACTATED RINGERS 1,000 ML 30 ML IV CONT ×2 (09:33→12:14)
--- NOTE | 2023-08-19 10:32 | WPDHPUPDATE1 ---
History and Physical Update Update Date/Time: 08/19/23 10:32 Procedure will be tonsillectomy
--- NOTE | 2023-08-19 10:52 | WPDANESEPPF ---
Anes - Initial Pre Proc Eval Procedure: Operation Date: 08/19/23 11:30 Proposed Procedures p Tonsillectomy - Jony Gimenez MD Date/Time: 08/19/23 10:52 Surgeon: Jony Gimenez MD Pre Op Diagnosis: recurrent tonsilitis Patient Data Age: 58 Gender: F Height: 1.68 m Weight: 92.5 kg Last Vital Signs Temp 36.3 C L 08/19/23 09:17 Pulse 65 08/19/23 09:17 Resp 16 08/19/23 09:17 BP 147/71 H 08/19/23 09:17 Pulse Ox 98 08/19/23 09:17 O2 Del Method Room Air 08/19/23 09:17 Allergies Allergy/AdvReac Type Severity Reaction Status Date / Time latex Allergy Rash Verified 08/19/23 09:08 aluminum hydroxide AdvReac Mild GI Verified 08/19/23 09:08 [From Mylanta] Cocktail- Confusion/Tongue Swelling atropine [From ] AdvReac Mild GI Verified 08/19/23 09:08 Cocktail- Confusion/Tongue Swelling calcium carbonate AdvReac Mild GI Verified 08/19/23 09:08 [From Mylanta] Cocktail- Confusion/Tongue Swelling hyoscyamine [From ] AdvReac Mild GI Verified 08/19/23 09:08 Cocktail- Confusion/Tongue Swelling lidocaine AdvReac Mild GI Verified 08/19/23 09:08 Cocktail- Confusion/Tongue Swelling magnesium hydroxide AdvReac Mild GI Verified 08/19/23 09:08 [From Mylanta] Cocktail- Confusion/Tongue Swelling phenobarbital [From ] AdvReac Mild GI Verified 08/19/23 09:08 Cocktail- Confusion/Tongue Swelling scopolamine [From ] AdvReac Mild GI Verified 08/19/23 09:08 Cocktail- Confusion/Tongue Swelling simethicone [From Mylanta] AdvReac Mild GI Verified 08/19/23 09:08 Cocktail- Confusion/Tongue Swelling adhesive AdvReac Unknown RASH Verified 08/19/23 09:08 moxifloxacin AdvReac Unknown N&V Verified 08/19/23 09:08 GI COCKTAIL AdvReac Mild CONFUSION, Uncoded 08/19/23 09:08 TONGUE SWELLING Home Medications Medication Instructions Recorded Confirmed Type atorvastatin 40 mg tablet 40 mg PO HS 11/30/20 08/08/23 History dicyclomine 10 mg capsule 10 mg PO DAILY PRN Abdominal 11/30/20 08/08/23 History Discomfort estradiol 1 mg tablet 1 mg PO DAILY 11/30/20 08/08/23 History omeprazole 20 mg capsule,delayed 20 mg PO DAILY 11/30/20 08/08/23 History release losartan 50 mg-hydrochlorothiazide 1.5 tablet PO DAILY 12/10/21 08/08/23 History 12.5 mg tablet calcium carbonate 600 mg calcium 600 mg PO DAILY 10/09/22 08/08/23 History (1,500 mg) tablet (Calcium) lactobacillus combination no.9 4 4,000 mmu cells PO DAILY 10/09/22 08/08/23 History billion cell capsule (Adult 50 Plus Probiotic) magnesium 200 mg tablet 200 mg PO DAILY 10/09/22 08/08/23 History omega 0-krs-fvc-fish oil 60 mg-90 1 cap PO DAILY 10/09/22 08/08/23 History mg-500 mg capsule (Fish Oil) escitalopram oxalate 10 mg tablet 10 mg PO DAILY 08/08/23 08/08/23 History Patient hx anesthesia problems: none Family hx anesthesia problems: none Results Review: All pre-operative results and documents have been reviewed as part of the pre-operative evaluation. [facility] Past Medical History Medical History Fullness after eating GERD (gastroesophageal reflux disease) Hiatal hernia Hyperlipidemia Hypertension Mixed irritable bowel syndrome Postprandial nausea RUQ pain Surgical History Surgical History H/O rectocele repair H/O vein stripping H/O: hysterectomy Social History Social History Smoking status: Never smoker Alcohol intake: current Drinks per week: 3 Alcohol use details: 2/MONTH Substance use: never Substance use type: does not use Do You Feel Safe in your Home?: No Lack of Transportation: No Lack of Food: Never True Current Housing: I Have Housing Concerned About Future Housing: No Di
--- NOTE | 2023-08-19 12:27 | W.PM.PROC2 ---
Procedure Note - Detailed Date of Procedure 08/19/23 Pre-op Diagnosis recurrent tonsilitis Post-op Diagnosis Same Procedure Performed Tonsillectomy Surgeon Jony Gimenez MD Anesthesia General Indications see above Findings scarred in tonsils consistent with recurrent infections. Left-sided small purulence cyst. In the tonsil itself intra tonsillar. Minimal bleeding Description of Procedure patient identified consent verified preop. Patient further review. However performed. General anesthesia induced endotracheal tube secured airway. Patient prepped draped position procedure confirmed 2nd time-out McIvor mouth gag inserted to reveal tonsils described above. They were removed in extracapsular plane bilaterally using electrocautery at a setting of 8. Any bleeders controlled Bovie suction electrocautery setting 10 and bipolar electrocautery setting of 8. Between tonsils McIvor mouth gag was lowered to allow blood flow to return to the tongue. After the tonsils are out McIvor mouth gag was lowered for 30 seconds reopened reveal no further bleeding. The McIvor mouth gag removed. Care the patient given back to Anesthesiology. No complications. I performed all dictated portions of the procedure. Blood loss 2 cc. Patient taken to PACU. Estimated Blood Loss 2 Drains No Packing No Pathology Yes Complications No immediate complications Condition Stable Disposition PACU [facility] Billing Surgery - Charge Forward: Surgery Billing
[2023-08-19] MEDS: fentaNYL CITRATE INJ (*CRX) 100 MCG/2 ML VIAL 25 MCG IV PUSH ×3 (12:30→12:50)
== END 2023-08-19 14:05 | disposition home or self-care (01) ==
PROVIDERS: PCP Internal Medicine; Visit Provider Otolaryngology
PROC: (CPT 42826; principal; 2023-08-19 11:30)
DX: J35.01 Chronic tonsillitis (principal); I10 Essential (primary) hypertension; E78.5 Hyperlipidemia, unspecified; K58.2 Mixed irritable bowel syndrome; K21.9 Gastro-esophageal reflux disease without esophagitis
CPT/HCPCS: 42826; 88304; A9270; J0330; J1100; J2405; J2704; J3010; J7120

== ENCOUNTER 2024-07-21 14:22 | Outpatient (CLI) | payer BC, SELFPAY ==
--- NOTE | ~2024-07-21 | MM_ITS ---
EXAMINATION: MM screening abhishek BI w juan m HISTORY: Screening TECHNIQUE: Craniocaudal and mediolateral oblique 3-D tomosynthesis images were obtained and synthetic 2-D images were generated. CAD analysis was submitted and interpreted. COMPARISON: Comparison to multiple prior studies sequentially, with oldest reviewed study dated 07/31. BREAST PARENCHYMAL COMPOSITION: Not dense: There are scattered areas of fibroglandular density. FINDINGS: There is no evidence of suspicious mass, calcification, or architectural distortion to sugg est malignancy in either breast. There has been no suspicious interval change. IMPRESSION: 1. No mammographic evidence of malignancy. 2. Recommend routine screening mammography in one year. 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
== END 2024-07-21 14:23 | disposition home or self-care (01) ==
PROVIDERS: PCP Internal Medicine; Visit Provider Internal Medicine
DX: Z12.31 Encounter for screening mammogram for malignant neoplasm of breast (principal)
CPT/HCPCS: 77063; 77067

== ENCOUNTER 2024-08-04 13:35 | Outpatient (CLI) | payer BC, SELFPAY ==
--- NOTE | ~2024-08-04 | XR_ITS ---
EXAMINATION: XR hip LT min 2V DATE: 08/04/2024 13:54 INDICATION: Left hip pain. TECHNIQUE: 2 views of left hip were obtained. COMPARISON: None. FINDINGS: Alignment is normal. No fracture. Left hip joint space is normal. IMPRESSION: 1. Normal left hip. Reviewed, dictated and finalized at location B. [employer] WORK[employer] IMPRESSION: 1. Normal left hip.
--- NOTE | ~2024-08-04 | XR_ITS ---
HISTORY: left hip pain/low back pain,NKI COMPARISON: Reference is made to a CT examination of the abdomen and pelvis dated 08/28/2022 TECHNIQUE: 2 view lumbar spine. FINDINGS: There are 5 non-rib bearing lumbar vertebral bodies. Degenerative disease is identified, with osteophyte formation and disc space narrowing within the low er lumbar spine. Facet arthropathy is also noted. Remaining disc spaces and vertebral body heights are otherwise well maintained. There are no lytic or sclerotic lesions. IMPRESSION: Degenerative disease, without acute fracture. Reviewed, dictated and finalized at location A. [facility]
== END 2024-08-04 13:36 | disposition home or self-care (01) ==
LOC: CHSIMG 13:36
PROVIDERS: PCP Internal Medicine; Visit Provider Internal Medicine
DX: M54.50 Low back pain, unspecified (principal); M25.552 Pain in left hip; M51.369 Other intervertebral disc degeneration, lumbar region without mention of lumbar back pain or lower extremity pain
CPT/HCPCS: 72100; 73502

== ENCOUNTER 2024-08-10 08:52 | Outpatient (CLI) | payer BC, SELFPAY ==
--- NOTE | ~2024-08-10 | MR_ITS ---
EXAMINATION: MR lumbar spine wo con DATE: 08/10/2024 09:17 INDICATION: Low back pain and radiculopathy TECHNIQUE: Magnetic resonance imaging (MRI) of the lumbar spine was performed without intravenous con trast. Sequences included sagittal T2-weighted FSE, sagittal T2-weighted FS FSE, sagittal T1-weighted FSE, and axial T2-weighted FSE. COMPARISON: Lumbar spine radiographs dated 08/04/2024 FINDINGS: 1 mm anterolisthesis L4 on L5. A degree lumbar levocurvature. Chronic mild anterior wedging at T10 an d T11. Lumbar vertebral body heights are normal. There are scattered fibrofatty and fibrovascular de generative endplate changes at multiple levels in the lumbar and lower thoracic spine. Marrow signal is otherwise normal. There is mild disc height loss at L3-L4 and mild to moderate left-sided predomin ant disc height loss at L4-L5. The conus medullaris terminates at L1. There is normal signal in the c audal spinal cord. Paravertebral soft tissues are unremarkable. The following disc levels are specifi sondra discussed: T12-L1: The disc does not extend beyond the endplate margin. There is moderate bilateral facet joint osteoarthritis. There is no neural foraminal stenosis. There is no central canal stenosis. L1-L2: The disc does not extend beyond the endplate margin. There is moderate bilateral facet joint o steoarthritis. There is no neural foraminal stenosis. There is no central canal stenosis. L2-L3: The disc does not extend beyond the endplate margin. There is mild bilateral facet joint osteo arthritis. There is no neural foraminal stenosis. There is no central canal stenosis. L3-L4: There are small bilateral foraminal zone disc protrusions. There is moderate left and severe r ight facet joint osteoarthritis. There is mild bilateral neural foraminal stenosis. There is no centr al canal stenosis. L4-L5: Disc is bulging with left foraminal zone annular fissure.. There is severe bilateral facet savannah nt osteoarthritis. There is mild left and minimal right neural foraminal stenosis. There is mild cent ral canal stenosis. L5-S1: The disc does not extend beyond the endplate margin. There is moderate bilateral facet joint o steoarthritis. There is no neural foraminal stenosis. There is no central canal stenosis. IMPRESSION: 1. Mild lumbar levocurvature with mild spondylosis. Reviewed, dictated and finalized at location B. [employer]
== END 2024-08-10 08:53 | disposition home or self-care (01) ==
PROVIDERS: PCP Internal Medicine; Visit Provider Internal Medicine
DX: M47.26 Other spondylosis with radiculopathy, lumbar region (principal)
CPT/HCPCS: 72148

== ENCOUNTER 2024-11-11 18:54 | Emergency (ER) | payer BC, SELFPAY ==
--- NOTE | ~2024-11-11 | CT_ITS ---
CT abdomen pelvis w con Ordering provider: Petey Gomez MD History: 59 years Female with . rt side ab pain with diarrhea . Comparison: August 28, 2022 Technique: CT abdomen and pelvis with IV and without oral contrast. Automated exposure control and it erative reconstruction technique were employed. The dose-length product was 1090.91 mGy-cm. 100 mL Om nipaque 350 was given IV. Findings: VISUALIZED LOWER CHEST: Slight cardiomegaly. UPPER ABDOMINAL ORGANS: Liver: Normal. Gallbladder: Normal. Spleen: Normal. Stomach/duodenum: Normal. Pancreas: Normal. Adrenals: Normal. Kidneys: Normal. PELVIC ORGANS: The bladder is normal. BOWEL AND MESENTERY: Colon: No evidence of diverticulitis.. Normal appendix. Small Bowel: Normal. No obstruction. Peritoneum/mesentery: No free air or free fluid. No mesenteric lymphadenopathy. RETROPERITONEUM: Normal aorta. No retroperitoneal lymphadenopathy. MUSCULOSKELETAL: Superficial soft tissues: The superficial soft tissues are normal. Bones: Age appropriate degenerative changes of the spine. IMPRESSION: 1. No evidence of appendicitis, diverticulitis or intestinal obstruction. Reviewed, dictated and finalized at location A.
[2024-11-11 19:03] VITALS: TEMP 36.4
--- NOTE | 2024-11-11 19:31 | ECG_ITS ---
Test Date: 2024-11-11 19:46:33 Measurements Intervals [place] Rate: 62 P: -4 NE: 166 QRS: 0 QRSD: 112 T: -10 QT: 575 QTc: 586 Interpretive Statements SINUS RHYTHM LOW QRS VOLTAGE IN PRECORDIAL LEADS [QRS DEFLECTION < 1.0 mV IN CHEST LEADS] MINIMAL VOLTAGE CRITERIA FOR LVH, CONSIDER NORMAL VARIANT [MEETS CRITERIA IN ONE OF: R(aVL), S(V1), R(V5), R(V5/V6)+S(V1)] poor r wave progression Electronically Signed On 11-13-2024 11:47:24 CDT by Bhakti Jarrell M.D.
[2024-11-11 19:44] LABS: Basophils Absolute Auto 0.05 K/mm3 (0.00-0.10); Basophils Percent Auto 0.5 % (0.0-1.0); Eosinophils Absolute Auto 0.16 K/mm3 (0.02-0.50); Eosinophils Percent Auto 1.6 % (1.0-6.0); Hematocrit 38.4 % (35.0-49.0); Hemoglobin 12.3 g/dL (12.0-15.0); Immature Granulocyte Absolute 0.03 K/mm3 (0.00-0.00); Immature Granulocyte Percent A 0.3 % (0.0-0.0); Lymphocytes Absolute Auto 3.82 K/mm3 (1.10-4.50); Lymphocytes Percent Auto 38.7 % (18.0-42.0); Mean Corpuscular Hemoglobin 27.1 pg (27.0-31.0); Mean Corpuscular Volume 84.6 fL (78.0-102.0); Mean Platelet Volume 10.5 fl (9.2-11.8); Monocytes Absolute Auto 0.75 K/mm3 (0.10-0.90); Monocytes Percent Auto 7.6 % (2.0-11.0); Neutrophils Absolute Auto 5.05 K/mm3 (1.70-7.20); Neutrophils Percent Auto 51.3 % (50.0-70.0); Platelet Count Result 313 K/mm3 (150-420); Red Blood Count 4.54 M/mm3 (4.20-5.40); Red Cell Distribution Width 12.6 % (11.6-14.4); White Blood Count 9.9 K/mm3 (4.8-10.8)
[2024-11-11] MEDS: MORPHINE SULFATE (*CRX) 4 MG/ML INJ IV PUSH (19:54)
[2024-11-11] MEDS: SODIUM CHLORIDE 0.9% IV 1,000 ML 999 ML IV CONT (19:56)
[2024-11-11 20:09] LABS: INR 0.9; Partial Thromboplastin Time 26.1 Sec (23.9-30.70); Prothrombin Time 9.9 Seconds (9.50-12.1)
--- NOTE | 2024-11-11 20:18 | PC.NURSE ---
Updated pt on status of lab machine being down and that this means longer wait time for lab results. Labs just arrived at [facility] w/in the last 10 mins. Informed pt that when creatinine has resulted, she will go to CT.
[2024-11-11 20:36] LABS: Alanine Aminotransferase 20 U/L (6-35); Alkaline Phosphatase 99 U/L (38-126); Anion Gap 7 mmol/L (4-12); Aspartate Amino Transferase 25 U/L (14-36); Bilirubin,Total 0.3 mg/dL (0.2-1.3); Blood Urea Nitrogen 20 mg/dL (7-17); Carbon Dioxide 30 mmol/L (22-30); Chloride 100 mmol/L (98-107); Estimated CRCL calculation 77 ml/min; Estimated Glomerular Filt Rate > 60; Glucose 110 mg/dL (65-110); Lipase 65 U/L (23-300); Osmolality Calculated 287 mOsm/kg (285-295); Potassium 4.1 mmol/L (3.4-5.0); Sodium 137 mmol/L (137-145)
[2024-11-11 20:44] LABS: Add Urine Microscopic? NO; Appearance Urine Clear (Clear); Bilirubin Urine Negative (Negative); Blood Urine Negative (Negative); Color Urine Light Yellow (Yellow); Glucose Urine UA Negative (Negative); Ketones Urine Negative (Negative); Leukocyte Esterase Ur Negative LEU/UL (Negative); Nitrate Urine Negative (Negative); Protein Urine Negative (Negative); Specific Grav Ur >= 1.030 (1.010-1.020); Urobilinogen Urine 0.2 mg/dL (0.2-1.0)
--- NOTE | 2024-11-11 20:45 | PC.NURSE ---
Pt going to CT.
[2024-11-11 20:47] LABS: Troponin I < 0.012 ng/mL (0.000-0.034)
--- NOTE | 2024-11-11 21:13 | ED_ITS ---
HPI - Abdominal Pain General Chief Complaint: Abdominal Pain Stated Complaint: abdominal pain Time Seen by Provider: 11/11/24 19:00 Source: patient and family Mode of arrival: ambulatory Limitations: no limitations History of Present Illness HPI narrative: this is a 59-year-old female with history of diverticulitis presents with abdominal pain over the last day or so with some localized to right lower quadrant with no dysuria no hematuria no chest pain no shortness of breath no fever chills no flank pain. MD elicited complaint: abdominal pain Pertinent past history: diverticulitis Onset (ago): hour(s) Pain Consistency: constant Location: RLQ Severity: moderate Quality: cramping and aching Related Data Home Medications ?Medication ?Instructions ?Recorded ?Confirmed ?Last Taken ?Type atorvastatin 40 mg tablet 40 mg PO HS 11/30/20 08/08/23 04/04/22 05:00 History dicyclomine 10 mg capsule 10 mg PO DAILY PRN Abdominal 11/30/20 08/08/23 04/04/22 05:00 History Discomfort estradiol 1 mg tablet 1 mg PO DAILY 11/30/20 08/08/23 04/04/22 05:00 History omeprazole 20 mg capsule,delayed 20 mg PO DAILY 11/30/20 08/08/23 04/04/22 05:00 History release losartan 50 mg-hydrochlorothiazide 1.5 tablet PO DAILY 12/10/21 08/08/23 04/04/22 05:00 History 12.5 mg tablet calcium carbonate (Calcium 600) 600 mg PO DAILY 10/09/22 08/08/23 Unknown History lactobacillus combination no.9 4 4,000 mmu cells PO DAILY 10/09/22 08/08/23 Unknown History billion cell capsule (Adult 50 Plus Probiotic) magnesium 200 mg tablet 200 mg PO DAILY 10/09/22 08/08/23 Unknown History omega 8-hxd-rns-fish oil 60 mg-90 1 cap PO DAILY 10/09/22 08/08/23 Unknown History mg-500 mg capsule (Fish Oil) escitalopram oxalate 10 mg tablet 10 mg PO DAILY 08/08/23 08/08/23 Unknown History Allergies Allergy/AdvReac Type Severity Reaction Status Date / Time latex Allergy Rash Verified 11/11/24 19:11 aluminum hydroxide (From AdvReac Mild GI Verified 11/11/24 19:11 Mylanta) Cocktail- Confusion/Tongue Swelling atropine (From ) AdvReac Mild GI Verified 11/11/24 19:11 Cocktail- Confusion/Tongue Swelling calcium carbonate (From AdvReac Mild GI Verified 11/11/24 19:11 Mylanta) Cocktail- Confusion/Tongue Swelling hyoscyamine (From ) AdvReac Mild GI Verified 11/11/24 19:11 Cocktail- Confusion/Tongue Swelling lidocaine AdvReac Mild GI Verified 11/11/24 19:11 Cocktail- Confusion/Tongue Swelling magnesium hydroxide (From AdvReac Mild GI Verified 11/11/24 19:11 Mylanta) Cocktail- Confusion/Tongue Swelling phenobarbital (From ) AdvReac Mild GI Verified 11/11/24 19:11 Cocktail- Confusion/Tongue Swelling scopolamine (From ) AdvReac Mild GI Verified 11/11/24 19:11 Cocktail- Confusion/Tongue Swelling simethicone (From Mylanta) AdvReac Mild GI Verified 11/11/24 19:11 Cocktail- Confusion/Tongue Swelling adhesive AdvReac Unknown RASH Verified 11/11/24 19:11 moxifloxacin AdvReac Unknown N&V Verified 11/11/24 19:11 GI COCKTAIL AdvReac Mild CONFUSION, Uncoded 11/11/24 19:11 TONGUE SWELLING Review of Systems 2 Review of Systems: All systems reviewed & are unremarkable except as noted in HPI and below PMFSH Past Medical History Medical History RUQ pain Mixed irritable bowel syndrome Fullness after eating Postprandial nausea Hiatal hernia Hypertension GERD (gastroesophageal reflux disease) Hyperlipidemia Surgical History Surgical History H/O rectocele repair H/O: hysterectomy H/O vein stripping Social History Social History Smoking status: Never smoker Alcohol intake: current Drinks per week: 3 Alcohol use details: 2/MONTH Substance use: never Substance use type: does not use Do You Feel Safe in your Home?: No Lack of Transportation: No Lack of Food: Never True Current Housing: I Have Housing Concerned About Future Housing: No Difficulty Paying Gas/Electric Bills: No Difficulty Paying for Meds: No Currently Unemployed: No Education: High School Diploma/GED Difficulty w/ Childcare or Family Care: No Living arrangements: with family Gender identity (if verbalized by the patient): Female Spiritual care concerns: No Exam 2 Const: General: healthy appearing and no acute distress Nutritional Appearance: well nourished Orientation/consciousness: patient oriented x3 Limitations: no limitations Eyes: Conjunctivae: conjunctivae normal Chest: Chest palpation & inspection: normal inspection of the chest Resp: Auscultation: clear to auscultation bilaterally Cardio: Rate: regular rate Rhythm: regular rhythm GI: GI Palp: Yes Soft to palpation and Yes Tenderness to palpation present (GI) Auscultation: normal bowel sounds : General: Yes bladder normal to palpation Back/Spine/Pelvis: Back: no CVA tenderness Skin: General skin exam: normal color Rashes: no rashes Wounds: no wounds Extrem: General: normal to inspection, no clubbing, cyanosis or edema and no pedal edema Course Course Emergency Course: Patient received pain medication along with IV fluids pain level has improved, labs reviewed and unremarkable CT scan performed and reviewed with patient. Vital Signs Vital signs: Vital Signs Temperature 36.4 C 11/11/24 19:03 Temperature 36.4 C 11/11/24 19:03 MDM - Abdominal Pain Lab Data 11/11/24 19:41 11/11/24 19:41 Labs: Lab Results 11/11/24 11/11/24 Range/Units 19:31 19:41 WBC 9.9 (4.8-10.8) K/mm3 RBC 4.54 (4.20-5.40) M/mm3 Hgb 12.3 (12.0-15.0) g/dL Hct 38.4 (35.0-49.0) % MCV 84.6 (78.0-102.0) fL MCH 27.1 (27.0-31.0) pg MCHC 32.0 (32-36) g/dL RDW 12.6 (11.6-14.4) % Plt Count 313 (150-420) K/mm3 MPV 10.5 (9.2-11.8) fl Immature Gran % (Auto) 0.3 H (0.0-0.0) % Neut % (Auto) 51.3 (50.0-70.0) % Lymph % (Auto) 38.7 (18.0-42.0) % [place] % (Auto) 7.6 (2.0-11.0) % Eos % (Auto) 1.6 (1.0-6.0) % Baso % (Auto) 0.5 (0.0-1.0) % Lymph # (Auto) 3.82 (1.10-4.50) K/mm3 [place] # (Auto) 0.75 (0.10-0.90) K/mm3 Eos # (Auto) 0.16 (0.02-0.50) K/mm3 Baso # (Auto) 0.05 (0.00-0.10) K/mm3 Abs Immat Gran (auto) 0.03 H (0.00-0.00) K/mm3 Absolute Neuts (auto) 5.05 (1.70-7.20) K/mm3 Absolute Nucleated RBC 0.00 (0.00-0.00) K/mm3 Nucleated RBC % 0.0 (0-0.0) % PT 9.9 (9.50-12.1) Seconds INR 0.9 APTT 26.1 (23.9-30.70) Sec Sodium 137 (137-145) mmol/L Potassium 4.1 (3.4-5.0) mmol/L Chloride 100 (98-107) mmol/L Carbon Dioxide 30 (22-30) mmol/L Anion Gap 7 (4-12) mmol/L BUN 20 H (7-17) mg/dL Creatinine 0.80 (0.7-1.0) mg/dL Estim Creat Clear Calc 77 ml/min Estimated GFR > 60 (59 - ) Glucose 110 (65-110) mg/dL Calculated Osmolality 287 (285-295) mOsm/kg Lactic Acid 1.0 (0.7-2.0) mmol/L Calcium 9.0 (8.4-10.2) mg/dL Total Bilirubin 0.3 (0.2-1.3) mg/dL AST 25 (14-36) U/L ALT 20 (6-35) U/L Alkaline Phosphatase 99 (38-126) U/L Troponin I < 0.012 (0.000-0.034) ng/mL Total Protein 7.0 (6.3-8.2) g/dL Albumin 4.0 (3.5-5.1) g/dL Lipase 65 (23-300) U/L Urine Color Light yellow (Yellow) Urine Appearance Clear (Clear) Urine pH 6.0 (5.0-8.0) Ur Specific [place] >= 1.030 H (1.010-1.020) Urine Protein Negative (Negative) Urine Glucose (UA) Negative (Negative) Urine Ketones Negative (Negative) Ur Blood (Man) Negative (Negative) Urine Nitrate Negative (Negative) Urine Bilirubin Negative (Negative) Urine Urobilinogen 0.2 (0.2-1.0) mg/dL Leukocyte Esterase Rfl Negative (Negative) ELIZABETH/UL Critical Care Time Critical Care Time Critical Care Time: No Discharge Plan Discharge Clinical Impression: Diverticulitis Patient Disposition: Home Condition: Stable Instructions: Antibiotic Form Patient Language: Amharic Prescriptions: No Action losartan-hydrochlorothiazide 50-12.5 mg tablet 1.5 tablet PO DAILY Adult 50 Plus Probiotic 4 billion cell capsule 4,000 mmu cells PO DAILY Rx Instructions: administer with a meal magnesium 200 mg tablet 200 mg PO DAILY omega 4-fis-mor-fish oil [Fish Oil] 60-90-500 mg capsule 1 cap PO DAILY calcium carbonate [Calcium 600] 600 mg calcium (1,500 mg) tablet 600 mg PO DAILY atorvastatin 40 mg tablet 40 mg PO HS estradiol 1 mg tablet 1 mg PO DAILY omeprazole 20 mg capsule,delayed release(DR/EC) 20 mg PO DAILY dicyclomine 10 mg capsule 10 mg PO DAILY PRN (Reason: Abdominal Discomfort) escitalopram oxalate 10 mg tablet 10 mg PO DAILY oxycodone 5 mg tablet 5 mg PO .q6-q8h PRN (Reason: pain) Qty: 30 0RF Follow-up/Referrals: Nazario Carranza MD [Primary Care Provider] -
[2024-11-11 22:02] VITALS: BP 118/91; PULSE 71; RESP 16; O2SAT 97
--- NOTE | 2024-11-14 13:24 | PC.NURSE ---
blood culture reviewed, preliminary, no growth.
== END 2024-11-11 22:03 | disposition home or self-care (01) ==
PROVIDERS: Emergency Provider Emergency Medicine; PCP Internal Medicine
DX: K57.92 Diverticulitis of intestine, part unspecified, without perforation or abscess without bleeding (principal); I10 Essential (primary) hypertension; E78.5 Hyperlipidemia, unspecified
CPT/HCPCS: 36415; 74177; 80053; 81003; 83605; 83690; 84484; 85025; 85610; 85730; 87040; 93005; 96361; 96374; 99284; J2270; J7030; Q9967

== ENCOUNTER 2024-12-31 00:43 | Day surgery (SDC) | payer BC, SELFPAY ==
[2024-12-01 14:09] VITALS: PULSE 66; RESP 16; TEMP 36.8; O2SAT 96; BMI 33.1
--- NOTE | 2024-12-01 14:22 | PC.NURSE ---
Report to the Outpatient Waiting Room, entrance under the green pavilion located off [facility], at time __1000am on date ___12/31/24____. Planned Procedure Time: _1200pm .? Time changes happen often and if your time is changed the preop area will call you the afternoon before. - You and your visitor will be asked to self-screen and do not enter if you have any COVID symptoms. Please call surgeon if you need to reschedule. - A mask is optional within the hospital at this time. Patients may have clear liquids (water, carbonated beverages, clear teas, apple juice) until 3 hours prior to surgery with a maximum of 20 ounces. - No food from midnight until time of surgery and no smoking, or chewing tobacco (or any form of nicotine). No chewing gum, candy or mints. (0900am) - Take only the following medications with a SIP of water on the morning of surgery: Escitalopram, Tylenol if needed DO NOT STOP ANY OF YOUR OTHER PRESCRIPTION MEDICATIONS PRIOR TO SURGERY EXCEPT THE FOLLOWING Hold all vitamins and supplements for 3 days per anesthesiologist. Date to take last dose is 12/06/24. Medications to discontinue per physician ___None Date to take last dose None Please no make-up, nail eritrean, hairspray, perfume, deodorant, or body powder the day of surgery.? No jewelry (including any body piercings) or valuables the day of surgery, leave them at home.? Please take a shower or bath the night before, or the morning of, surgery with an antibacterial soap.? Wear comfortable, loose fitting clothing.? - Jewelry must be removed prior to entering the operating room.? Rings and piercings that are not removed may be cut off. - The hospital will not accept responsibility for valuables.? - Please leave all valuables, including medications, at home the day of surgery. If you are going home after surgery, a licensed transportation driver must drive you home.? - NO public transportation without another adult if you receive anesthesia. - We recommend that an adult stay with you for 24 hours following discharge. - We also recommend that you do not drive, make important decision, drink alcoholic beverages, or take any drugs that were not prescribed by your health care provider for at least 24 hours after your discharge time. Follow any additional instructions given to you from your surgeon. Telephone instructions given to __Patient and asked if any additional questions and then verbalized understanding. Patient advised to call surgeon office or pre surgery nurse liaison [phone] if any additional questions.
[2024-12-31] VITALS (10 sets, daily range): BP systolic 110–140; BP diastolic 64–85; PULSE 58–81; RESP 10–20; TEMP 36.3–36.6; O2SAT 94–100; BMI 33.7
--- NOTE | ~2024-12-31 | XR_ITS ---
XR fluoroscopy no charge Indication: Left L4-5 lumbar hemilaminectomy with medial facetectomy TECHNIQUE: Fluoroscopy used during Left L4-5 lumbar hemilaminectomy with medial facetectomy performe d by [Huy Isidro MD] on 12/31/2024. 9 seconds of fluoroscopy with one fluoroscopic images ca ptured. FINDINGS: Correlate with procedure note. IMPRESSION: Fluoroscopy used during Left L4-5 lumbar hemilaminectomy with medial facetectomy. Reviewed, dictated and finalized at location A. IMPRESSION: Fluoroscopy used during Left L4-5 lumbar hemilaminectomy with media l facetectomy.
[2024-12-31] MEDS: LACTATED RINGERS 1,000 ML 30 ML IV CONT ×2 (06:42→08:34)
--- NOTE | 2024-12-31 06:51 | WPDHPUPDATE1 ---
History and Physical Update Update Date/Time: 12/31/24 06:51 History and Physical has been reviewed, including an updated exam of the patient. There are NO changes in the patient's condition. Risks, benefits, and alternatives have been discussed and questions answered. Patient agrees to proceed with procedure.
--- NOTE | 2024-12-31 06:51 | WPDNEUROSGPN ---
Progress Note: A&P Assessment and Plan (1) Neuroforaminal stenosis of lumbar spine: Code(s): M48.061 - Spinal stenosis, lumbar region without neurogenic claudication Status: Acute Assessment and Plan: 59 year old female with left L4/L5 radiculopathy here for left L4/5 hemilaminectomy. Subjective Date/time seen: 12/31/24 06:51 Interval history: 59 year old female who presents with left L4 radiculopathy found to have moderate lateral recess stenosis at L4/5. She has failed conservative management and is now here for a left L4/5 hemilaminectomy. Exam Narrative: awake alert no acute distress MAEW 11/15 including IP/Q/H/PF/DF/EHL Objective Data Vital Signs Vital Signs: Vital Signs - 24 hr 12/31/24 06:30 Temperature 97.3 F L Pulse Rate 66 Blood Pressure 138/85 Pulse Oximetry 98 Oxygen Delivery Room Air Meds/Results Medications: Active Medications Generic Name Dose Route Start Last Admin Trade Name Freq PRN Reason Stop Dose Admin Fentanyl Citrate 25 mcg 12/30/24 14:37 Fentanyl Citrate Inj (*Crx) 100 Mcg/2 Ml Vial IV PUSH Q2M PRN Pain Lactated Ringer's 1,000 mls @ 30 mls/hr 12/30/24 14:40 12/31/24 06:42 Lr - Lactated Ringers Iv IV CONT 30 mls/hr .Q24H SOFIE Administration Lactated Ringer's 1,000 mls @ 30 mls/hr 12/30/24 14:40 Lr - Lactated Ringers Iv IV CONT .Q24H SOFIE Lactated Ringer's 1,000 mls @ 125 mls/hr 12/31/24 06:05 Lr - Lactated Ringers Iv IV CONT .Q8H SOFIE Ondansetron HCl 4 mg 12/30/24 14:37 Ondansetron Inj 4 Mg/2 Ml Vial IV PUSH ONCE PRN Nausea
--- NOTE | 2024-12-31 07:12 | WPDANESEPPF ---
Anes - Initial Pre Proc Eval Procedure: Operation Date: 12/31/24 07:30 Proposed Procedures p Left L4-5, Lumbar Hemilaminectomy Medial Facetectomy - Huy Isidro MD Date/Time: 12/31/24 07:12 Surgeon: Huy Isidro MD Pre Op Diagnosis: neural foraminal stenosis L4-5 Patient Data Age: 59 Gender: F Height: 1.68 m Weight: 94.8 kg Last Vital Signs Temp 97.3 F L 12/31/24 06:30 Pulse 66 12/31/24 06:30 Resp 16 12/01/24 14:09 BP 138/85 12/31/24 06:30 Pulse Ox 98 12/31/24 06:30 O2 Del Method Room Air 12/31/24 06:30 Allergies Allergy/AdvReac Type Severity Reaction Status Date / Time latex Allergy Rash Verified 12/31/24 06:36 aluminum hydroxide (From AdvReac Mild GI Verified 12/31/24 06:36 Mylanta) Cocktail- Confusion/Tongue Swelling atropine (From ) AdvReac Mild GI Verified 12/31/24 06:36 Cocktail- Confusion/Tongue Swelling calcium carbonate (From AdvReac Mild GI Verified 12/31/24 06:36 Mylanta) Cocktail- Confusion/Tongue Swelling hyoscyamine (From ) AdvReac Mild GI Verified 12/31/24 06:36 Cocktail- Confusion/Tongue Swelling lidocaine AdvReac Mild GI Verified 12/31/24 06:36 Cocktail- Confusion/Tongue Swelling magnesium hydroxide (From AdvReac Mild GI Verified 12/31/24 06:36 Mylanta) Cocktail- Confusion/Tongue Swelling phenobarbital (From ) AdvReac Mild GI Verified 12/31/24 06:36 Cocktail- Confusion/Tongue Swelling scopolamine (From ) AdvReac Mild GI Verified 12/31/24 06:36 Cocktail- Confusion/Tongue Swelling simethicone (From Mylanta) AdvReac Mild GI Verified 12/31/24 06:36 Cocktail- Confusion/Tongue Swelling adhesive AdvReac Unknown RASH Verified 12/01/24 14:04 moxifloxacin AdvReac Unknown N&V Verified 12/01/24 14:04 GI COCKTAIL AdvReac Mild CONFUSION, Uncoded 12/01/24 14:04 TONGUE SWELLING Home Medications ?Medication ?Instructions ?Recorded ?Confirmed ?Type atorvastatin 40 mg tablet 40 mg PO HS 11/30/20 12/01/24 History dicyclomine 10 mg capsule 10 mg PO DAILY PRN Abdominal 11/30/20 12/01/24 History Discomfort estradiol 1 mg tablet 1 mg PO DAILY 11/30/20 12/01/24 History omeprazole 20 mg capsule,delayed 20 mg PO DAILY 11/30/20 12/01/24 History release losartan 50 mg-hydrochlorothiazide 1.5 tablet PO DAILY 12/10/21 12/01/24 History 12.5 mg tablet calcium carbonate (Calcium 600) 600 mg PO DAILY 10/09/22 12/01/24 History lactobacillus combination no.9 4 4,000 mmu cells PO DAILY 10/09/22 12/01/24 History billion cell capsule (Adult 50 Plus Probiotic) magnesium 200 mg tablet 200 mg PO DAILY 10/09/22 12/01/24 History omega 4-izp-mop-fish oil 60 mg-90 1 cap PO DAILY 10/09/22 12/01/24 History mg-500 mg capsule (Fish Oil) escitalopram oxalate 10 mg tablet 10 mg PO DAILY 08/08/23 12/31/24 History Bacillus coagulans 10 billion cell 1 cell PO DAILY 12/01/24 12/01/24 History capsule,delayed release (Probiotic (B. coagulans)) vitamin B12 500 mcg-folic acid 400 1 tablet PO DAILY 12/01/24 12/01/24 History mcg tablet Patient hx anesthesia problems: none Family hx anesthesia problems: none Results Review: All pre-operative results and documents have been reviewed as part of the pre-operative evaluation. [facility] Past Medical History Medical History (Updated 11/12/24 @ 14:23 by Huy Isidro MD) IBS (irritable bowel syndrome) RUQ pain Mixed irritable bowel syndrome Fullness after eating Postprandial nausea Hiatal hernia Hypertension GERD (gastroesophageal reflux disease) Hyperlipidemia Surgical History Surgical History H/O rectocele repair H/O: hysterectomy H/O vein stripping Social History Social History (Updated 11/12/24 @ 13:42 by Lolita Marsh MA) Smoking status: Never smoker Alcohol intake: current Drinks per week: 3 Alcohol use details: 2/MONTH Substance use: never Substance use type: does not use Do You Feel Safe in your Home?: No Lack of Transportation: No Lack of Food: Never True Current Housing: I Have Housing Concerned About Future Housing: No Difficulty Paying Gas/Electric Bills: No Difficulty Paying for Meds: No Currently Unemployed: No Education: High School Diploma/GED Difficulty w/ Childcare or Family Care: No Living arrangements: with family Gender identity (if verbalized by the patient): Female Spiritual care concerns: No Anes - Eval Final PreProcedure Day of Procedure 12/31/24 07:12 Patient weight: obese Heart: regular rate and rhythm Lungs: clear to auscultation Airway: Mallampati scale class II Neurological: alert and oriented Last oral intake: >/= 8 hours ASA classification: III Emergent: no Anesthetic plan: proceed Anesthesia type and monitoring: general ETT and standard monitoring Results Review: All pre-operative results and documents have been reviewed as part of the pre-operative evaluation. Informed Consent: The patient's anesthetic plan and its attendant risks and benefits were discussed with the patient/family/POA. Questions were solicited and answers provided to the satisfaction of the patient/family/POA.
[2024-12-31] MEDS: ceFAZolin 2 GM/D5W 50 ML 2 GM/50 ML BAG IVPB (07:21)
[2024-12-31] MEDS: BUPIVACAINE/EPINEPHRINE 0.5% 50 ML VIAL 10 ML INFILTRATE (08:06)
--- NOTE | 2024-12-31 08:29 | W.PM.PROC2 ---
Procedure Note - Detailed Date of Procedure 12/31/24 Pre-op Diagnosis neural foraminal stenosis L4-5 Post-op Diagnosis Same Procedure Performed left L4/5 hemilaminectomy/foramitomy Use of operating microscope for microdissection Surgeon Huy Isidro MD Anesthesia General Findings lateral recess an medial foraminal stenosis Description of Procedure Once the patient was intubated patient was positioned prone onto the Mode frame. Lateral fluoroscopy was brought in and confirmed the L4-5 level. The incision was marked. The patient was then prepped and draped in the usual sterile fashion. Final time-out was performed indicating correct patient procedure site. At this point time injected local anesthetic along the planned incision line. I then made incision down to the fascia. Self-retaining retractors were placed I used Bovie electrocautery to only open the left side of the fascia at L4-5. I did a subperiosteal dissection to muscle off of the lamina and medial facet joint. Self retaining retractors were placed. Lateral fluoroscopy was brought in and confirmed with the other curette underneath the lamina that I was at the L4-5 level. At this point I brought in the microscope for use for the remainder of the case. Under direct visualization of L4-5 the instrument was removed from the L4-5 level and I used a drill to perform kory laminotomy and foraminotomy at L4-5. I used a Kerrison punch to remove additional medial facet joint to provide additional space within the lateral recess I used a nerve hook to feel out through the foramen and laterally to ensure there was no additional compression of the nerves. The wound was then irrigated FloSeal was placed and bone wax was placed over the facet joints. Wound was then irrigated again no bleeding was identified I then used bipolar electrocautery to obtain rigorous hemostasis of the muscle. There was no bleeding identified the wound was then closed in layers ending and Steri-Strips. Patient was then flipped supine and turned over to Anesthesia for extubation. Estimated Blood Loss 25 Complications No immediate complications Condition Stable Disposition PACU [facility] Billing Surgery - Charge Forward: Surgery Billing
[2024-12-31] MEDS: oxyCODONE HCL (*CRX) 5 MG TAB IR PO (10:51)
--- NOTE | 2025-01-07 09:54 | PM.IMHP ---
H&P: HPI History of Present Illness Date/Time: 01/07/25 09:54 Chief Complaint: leg pain Narrative: this is a 59-year-old female who presents with left-sided radicular pain not improve with conservative management who is here for elective left L4/5 hemilaminectomy/foramitomy Review of Systems Review of Systems: review of systems is negative other than what was listed in his presenting illness [facility] Past Medical History Medical History (Updated 11/12/24 @ 14:23 by Huy Isidro MD) IBS (irritable bowel syndrome) RUQ pain Mixed irritable bowel syndrome Fullness after eating Postprandial nausea Hiatal hernia Hypertension GERD (gastroesophageal reflux disease) Hyperlipidemia Surgical History Surgical History H/O rectocele repair H/O: hysterectomy H/O vein stripping Social History Social History (Updated 11/12/24 @ 13:42 by Lolita Marsh MA) Smoking status: Never smoker Alcohol intake: current Drinks per week: 3 Alcohol use details: 2/MONTH Substance use: never Substance use type: does not use Do You Feel Safe in your Home?: No Lack of Transportation: No Lack of Food: Never True Current Housing: I Have Housing Concerned About Future Housing: No Difficulty Paying Gas/Electric Bills: No Difficulty Paying for Meds: No Currently Unemployed: No Education: High School Diploma/GED Difficulty w/ Childcare or Family Care: No Living arrangements: with family Gender identity (if verbalized by the patient): Female Spiritual care concerns: No Meds Home Medications and Allergies Home Medications ?Medication ?Instructions ?Recorded ?Confirmed ?Type atorvastatin 40 mg tablet 40 mg PO HS 11/30/20 12/01/24 History dicyclomine 10 mg capsule 10 mg PO DAILY PRN Abdominal 11/30/20 12/01/24 History Discomfort estradiol 1 mg tablet 1 mg PO DAILY 11/30/20 12/01/24 History omeprazole 20 mg capsule,delayed 20 mg PO DAILY 11/30/20 12/01/24 History release losartan 50 mg-hydrochlorothiazide 1.5 tablet PO DAILY 12/10/21 12/01/24 History 12.5 mg tablet calcium carbonate (Calcium 600) 600 mg PO DAILY 10/09/22 12/01/24 History lactobacillus combination no.9 4 4,000 mmu cells PO DAILY 10/09/22 12/01/24 History billion cell capsule (Adult 50 Plus Probiotic) magnesium 200 mg tablet 200 mg PO DAILY 10/09/22 12/01/24 History omega 3-hff-twe-fish oil 60 mg-90 1 cap PO DAILY 10/09/22 12/01/24 History mg-500 mg capsule (Fish Oil) escitalopram oxalate 10 mg tablet 10 mg PO DAILY 08/08/23 12/31/24 History Bacillus coagulans 10 billion cell 1 cell PO DAILY 12/01/24 12/01/24 History capsule,delayed release (Probiotic (B. coagulans)) vitamin B12 500 mcg-folic acid 400 1 tablet PO DAILY 12/01/24 12/01/24 History mcg tablet cyclobenzaprine 5 mg tablet 5 mg PO HS #30 tabs 12/31/24 Rx oxycodone 5 mg tablet 5 mg PO Q4H PRN pain #32 tabs 12/31/24 Rx sennosides 8.6 mg tablet (senna) 8.6 mg PO BID PRN constipation #30 12/31/24 Rx tabs Allergies Allergy/AdvReac Type Severity Reaction Status Date / Time latex Allergy Rash Verified 12/31/24 06:36 aluminum hydroxide (From AdvReac Mild GI Verified 12/31/24 06:36 Mylanta) Cocktail- Confusion/Tongue Swelling atropine (From ) AdvReac Mild GI Verified 12/31/24 06:36 Cocktail- Confusion/Tongue Swelling calcium carbonate (From AdvReac Mild GI Verified 12/31/24 06:36 Mylanta) Cocktail- Confusion/Tongue Swelling hyoscyamine (From ) AdvReac Mild GI Verified 12/31/24 06:36 Cocktail- Confusion/Tongue Swelling lidocaine AdvReac Mild GI Verified 12/31/24 06:36 Cocktail- Confusion/Tongue Swelling magnesium hydroxide (From AdvReac Mild GI Verified 12/31/24 06:36 Mylanta) Cocktail- Confusion/Tongue Swelling phenobarbital (From ) AdvReac Mild GI Verified 12/31/24 06:36 Cocktail- Confusion/Tongue Swelling scopolamine (From ) AdvReac Mild GI Verified 12/31/24 06:36 Cocktail- Confusion/Tongue Swelling simethicone (From Mylanta) AdvReac Mild GI Verified 12/31/24 06:36 Cocktail- Confusion/Tongue Swelling adhesive AdvReac Unknown RASH Verified 12/01/24 14:04 moxifloxacin AdvReac Unknown N&V Verified 12/01/24 14:04 GI COCKTAIL AdvReac Mild CONFUSION, Uncoded 12/01/24 14:04 TONGUE SWELLING Exam Const: Other: neurologically intact without any focal neurologic deficits Assessment and Plan Assessment and plan (1) Neuroforaminal stenosis of lumbar spine: Code(s): M48.061 - Spinal stenosis, lumbar region without neurogenic claudication Status: Acute Assessment and Plan: proceed with left L4/5 hemilaminectomy/foramitomy
== END 2024-12-31 10:58 | disposition home or self-care (01) ==
PROVIDERS: PCP Internal Medicine; Visit Provider Neurological Surgery
PROC: (CPT 63030; principal; 2024-12-31 07:30)
DX: M48.061 Spinal stenosis, lumbar region without neurogenic claudication (principal); E66.9 Obesity, unspecified; Z68.33 Body mass index [BMI] 33.0-33.9, adult
CPT/HCPCS: 63030; 99199; A9270; J0690; J1100; J1171; J2003; J2250; J2704; J3010; J7030; J7120

== ENCOUNTER 2025-03-13 14:44 | Emergency (ER) | payer BC, SELFPAY ==
--- NOTE | ~2025-03-13 | XR_ITS ---
EXAMINATION: XR chest 2V DATE: 03/13/2025 15:32 INDICATION: Syncope TECHNIQUE: frontal and lateral views of the chest were obtained. COMPARISON: Chest radiograph dated 10/08/[address] abdomen and pelvis dated 12/10/2021 and 11/11/2024 FINDINGS: Chronic elevation right hemidiaphragm which has been present since at least 12/10/2021. No focal airspace opacities, pulmonary edema, pleural effusion or pneumothorax. The cardiomediastinal silhouette is normal. Mild to moderate thoracic spondylosis with chronic mild anterior wedging of a few mid and lower thoracic vertebral bodies. IMPRESSION: 1. Chronic elevation of the right hemidiaphragm. No acute cardiopulmonary disease. Reviewed, dictated and finalized at location A. IMPRESSION: 1. Chronic elevation of the right hemidiaphragm. No acute cardiopulmonary disea se.
--- NOTE | ~2025-03-13 | CT_ITS ---
EXAMINATION: CT brain wo con DATE: 03/13/2025 15:32 INDICATION: Syncope TECHNIQUE: Computed tomography (CT) of the head was performed without intravenous contrast. Sagittal and coronal reconstructions were performed. The mA was adjusted according to patient size. Iterative reconstruction technique was employed. The dose-length product was 605.33 mGy-cm. COMPARISON: None FINDINGS: No acute intracranial hemorrhage, acute infarction or abnormal extra axial fluid collection. Ventricles are normal and symmetric. No mass/mass effect. Mild mucosal thickening in the ethmoid sinuses. The orbits and mastoid air cells are normal. IMPRESSION: 1. Normal brain. No acute intracranial process. Reviewed, dictated and finalized at location A.
--- NOTE | 2025-03-13 14:44 | ED.SYNCOPE ---
HPI - Syncope General Chief Complaint: Syncope Stated Complaint: syncope Time Seen by Provider: 03/13/25 14:44 Source: patient Mode of arrival: EMS Limitations: no limitations History of Present Illness HPI narrative: patient is a 59-year-old female who was having lunch at a local [employer] restaurant and was not feeling normal and stood up to come towards the emergency room for evaluation and had a syncopal collapse episode. The episode lasted a few seconds according to bystanders/family. No injuries. No seizure activity. EMS found her pressure to be slightly low as the only abnormal finding and a mild bradycardia. The patient currently under treatment for sinus infection. MD complaint: loss of consciousness, felt faint and collapsed Onset (ago): minute(s) ( Thirty) Duration of episode: 10 -: second(s) Description of event: other ( syncope with collapse) Prodromal symptoms: chest pain ( occasional chest pains on and off for the past couple weeks) and other ( general feeling of impending doom type change) Witnessed: Yes - by Bystander Context: at rest and standing up Injuries sustained associated with event: none Current symptoms: none and back to baseline History: other ( hypertension, hyperlipidemia) Treatments prior to arrival: glucose ( 153) Related Data Home Medications ?Medication ?Instructions ?Recorded ?Confirmed ?Last Taken ?Type atorvastatin 40 mg tablet 40 mg PO HS 11/30/20 01/21/25 04/04/22 05:00 History dicyclomine 10 mg capsule 10 mg PO DAILY PRN Abdominal 11/30/20 01/21/25 04/04/22 05:00 History Discomfort estradiol 1 mg tablet 1 mg PO DAILY 11/30/20 01/21/25 04/04/22 05:00 History omeprazole 20 mg capsule,delayed 20 mg PO DAILY 11/30/20 01/21/25 11/30/24 History release losartan 50 mg-hydrochlorothiazide 1.5 tablet PO DAILY 12/10/21 01/21/25 04/04/22 05:00 History 12.5 mg tablet calcium carbonate (Calcium 600) 600 mg PO DAILY 10/09/22 01/21/25 Unknown History lactobacillus combination no.9 4 4,000 mmu cells PO DAILY 10/09/22 01/21/25 Unknown History billion cell capsule (Adult 50 Plus Probiotic) magnesium 200 mg tablet 200 mg PO DAILY 10/09/22 01/21/25 Unknown History omega 1-geg-idz-fish oil 60 mg-90 1 cap PO DAILY 10/09/22 01/21/25 Unknown History mg-500 mg capsule (Fish Oil) escitalopram oxalate 10 mg tablet 10 mg PO DAILY 08/08/23 01/21/25 12/31/24 History vitamin B12 500 mcg-folic acid 400 1 tablet PO DAILY 12/01/24 01/21/25 Unknown History mcg tablet Allergies Allergy/AdvReac Type Severity Reaction Status Date / Time latex Allergy Rash Verified 03/13/25 14:47 aluminum hydroxide (From AdvReac Mild GI Verified 03/13/25 14:47 Mylanta) Cocktail- Confusion/Tongue Swelling atropine (From ) AdvReac Mild GI Verified 03/13/25 14:47 Cocktail- Confusion/Tongue Swelling calcium carbonate (From AdvReac Mild GI Verified 03/13/25 14:47 Mylanta) Cocktail- Confusion/Tongue Swelling hyoscyamine (From ) AdvReac Mild GI Verified 03/13/25 14:47 Cocktail- Confusion/Tongue Swelling lidocaine AdvReac Mild GI Verified 03/13/25 14:47 Cocktail- Confusion/Tongue Swelling magnesium hydroxide (From AdvReac Mild GI Verified 03/13/25 14:47 Mylanta) Cocktail- Confusion/Tongue Swelling phenobarbital (From ) AdvReac Mild GI Verified 03/13/25 14:47 Cocktail- Confusion/Tongue Swelling scopolamine (From ) AdvReac Mild GI Verified 03/13/25 14:47 Cocktail- Confusion/Tongue Swelling simethicone (From Mylanta) AdvReac Mild GI Verified 03/13/25 14:47 Cocktail- Confusion/Tongue Swelling adhesive AdvReac Unknown RASH Verified 03/13/25 14:47 moxifloxacin AdvReac Unknown N&V Verified 03/13/25 14:47 GI COCKTAIL AdvReac Mild CONFUSION, Uncoded 03/13/25 14:47 TONGUE SWELLING Review of Systems Review of Systems: All systems reviewed & are unremarkable except as noted in HPI and below Constitutional: Constitutional: Reports no additional constitutional complaints Eyes: Eyes: Reports no additional eye complaints ENT: Reports system reviewed and no additional complaints, except as documented Cardiovascular: Cardiovascular: Reports no additional cardiovascular complaints Respiratory: Respiratory: Reports no additional respiratory complaints Gastrointestinal: Gastrointestinal: Reports no additional gastrointestinal complaints Genitourinary: Genitourinary: Reports no additional female genitourinary complaints Musculoskeletal: Musculoskeletal: Reports no additional musculoskeletal complaints Integumentary/Breasts: Skin/Breast: Reports system reviewed and no additional complaints, except as docu Neurologic: Reports system reviewed and no additional complaints, except as documented Psychiatric: Psychiatric: Reports no additional psychiatric complaints Endocrine: Endocrine: Reports no additional endocrine complaints Hematologic/Lymphatic: Hematologic/Lymphatic: Reports no additional hematologic/lymphatic complaints Allergic/Immunologic: Allergic/Immunologic: Reports no additional allergic/immunologic complaints PMFSH Past Medical History Medical History IBS (irritable bowel syndrome) RUQ pain Mixed irritable bowel syndrome Fullness after eating Postprandial nausea Hiatal hernia Hypertension GERD (gastroesophageal reflux disease) Hyperlipidemia Surgical History Surgical History H/O rectocele repair H/O: hysterectomy H/O vein stripping Social History Social History Smoking status: Never smoker Alcohol intake: current Alcohol use details: 2/MONTH Substance use: never Substance use type: does not use Do You Feel Safe in your Home?: No Lack of Transportation: No Lack of Food: Never True Current Housing: I Have Housing Concerned About Future Housing: No Difficulty Paying Gas/Electric Bills: No Difficulty Paying for Meds: No Currently Unemployed: No Education: High School Diploma/GED Difficulty w/ Childcare or Family Care: No Living arrangements: with family Gender identity (if verbalized by the patient): Female Spiritual care concerns: No Exam Const: General: healthy appearing Nutritional Appearance: well nourished Orientation/consciousness: patient oriented x3 HENMT: Head: normal to inspection Ears: external ears normal Face/Nose/Sinus: Normal external nose present Eyes: Conjunctivae: conjunctivae normal Pupils: Equal, round and reactive pupils present EOM: EOMs intact bilaterally Neck: Neck: normal visual inspection Chest: Chest palpation & inspection: normal inspection of the chest Resp: Effort & Inspection: normal respiratory effort and not labored Auscultation: clear to auscultation bilaterally and no crackles Cardio: Rate: regular rate Rhythm: regular rhythm Heart sounds: no murmurs GI: Inspection: non-distended GI Palp: Yes Soft to palpation and No Tenderness to palpation present (GI) Auscultation: normal bowel sounds : General: Yes bladder normal to palpation Back/Spine/Pelvis: Back: no CVA tenderness Skin: General skin exam: normal color Rashes: no rashes Wounds: no wounds Neuro: General: patient oriented x3, moves all extremities and no meningeal signs Other: fast exam negative, NIH score 0, GCS is 15 Extrem: General: normal to inspection Psych: Mental Status: mental status grossly normal Affect: normal affect Attitude: cooperative Course Vital Signs Vital signs: Vital Signs Temperature 36.6 C 03/13/25 14:45 Pulse Rate 62 03/13/25 14:45 Respiratory Rate 18 03/13/25 14:45 Blood Pressure 143/81 H 03/13/25 14:45 Pulse Oximetry 95 03/13/25 14:45 Oxygen Delivery Room Air 03/13/25 14:45 Temperature 36.6 C 03/13/25 14:45 Pulse Rate 62 03/13/25 14:45 Respiratory Rate 18 03/13/25 14:45 Blood Pressure 143/81 H 03/13/25 14:45 Pulse Oximetry 95 03/13/25 14:45 Oxygen Delivery Room Air 03/13/25 14:45 MDM - Syncope MDM Narrative Medical decision making narrative: patient is a 59-year-old female with syncopal and collapse episode prior to arrival. Will do cardio neurological workup at this time. workup was negative. Hypotension appreciated. IV fluids. Possibly prednisone side effect versus dehydration and orthostatic type hypertension versus vasovagal. Lab Data Attestation: I reviewed the patient's lab results. 03/13/25 15:02 03/13/25 15:01 Labs: Lab Results 03/13/25 03/13/25 03/13/25 Range/Units 15:01 15:02 15:12 WBC 11.2 H (4.8-10.8) K/mm3 RBC 4.43 (4.20-5.40) M/mm3 Hgb 12.1 (12.0-15.0) g/dL Hct 38.3 (35.0-49.0) % MCV 86.5 (78.0-102.0) fL MCH 27.3 (27.0-31.0) pg MCHC 31.6 L (32-36) g/dL RDW 13.1 (11.6-14.4) % Plt Count 316 (150-420) K/mm3 MPV 10.3 (9.2-11.8) fl Immature Gran % (Auto) 0.4 H (0.0-0.0) % Neut % (Auto) 68.2 (50.0-70.0) % Lymph % (Auto) 26.0 (18.0-42.0) % Harper % (Auto) 4.9 (2.0-11.0) % Eos % (Auto) 0.1 L (1.0-6.0) % Baso % (Auto) 0.4 (0.0-1.0) % Lymph # (Auto) 2.90 (1.10-4.50) K/mm3 Harper # (Auto) 0.55 (0.10-0.90) K/mm3 Eos # (Auto) 0.01 L (0.02-0.50) K/mm3 Baso # (Auto) 0.04 (0.00-0.10) K/mm3 Abs Immat Gran (auto) 0.04 H (0.00-0.00) K/mm3 Absolute Neuts (auto) 7.62 H (1.70-7.20) K/mm3 Absolute Nucleated RBC 0.00 (0.00-0.00) K/mm3 Nucleated RBC % 0.0 (0-0.0) % PT 10.9 (9.50-12.1) Seconds INR 1.0 APTT 21.0 L (23.9-30.70) Sec D-Dimer 0.19 (0.19-0.50) mg/L Sodium 137 (137-145) mmol/L Potassium 4.1 (3.4-5.0) mmol/L Chloride 100 (98-107) mmol/L Carbon Dioxide 29 (22-30) mmol/L Anion Gap 8 (4-12) mmol/L BUN 27 H (7-17) mg/dL Creatinine 0.83 (0.7-1.0) mg/dL Estim Creat Clear Calc 75 ml/min Estimated GFR > 60 (59 - ) Glucose 213 H (65-110) mg/dL Calculated Osmolality 295 (285-295) mOsm/kg Calcium 8.8 (8.4-10.2) mg/dL Total Bilirubin 0.4 (0.2-1.3) mg/dL AST 20 (14-36) U/L ALT 17 (6-35) U/L Alkaline Phosphatase 69 (38-126) U/L Troponin I < 0.012 Cancelled (0.000-0.034) ng/mL NT-Pro-B Natriuret Pep 84 (19.9-100) pg/mL Total Protein 6.6 (6.3-8.2) g/dL Albumin 3.8 (3.5-5.1) g/dL Urine Color Light yellow (Yellow) Urine Appearance Clear (Clear) Urine pH 6.5 (5.0-8.0) Ur Specific [place] 1.015 (1.010-1.020) Urine Protein Negative (Negative) Urine Glucose (UA) Negative (Negative) Urine Ketones Negative (Negative) Ur Blood (Man) Negative (Negative) Urine Nitrate Negative (Negative) Urine Bilirubin Negative (Negative) Urine Urobilinogen 0.2 (0.2-1.0) mg/dL Leukocyte Esterase Rfl Negative (Negative) ELIZABETH/UL Imaging Data Attestation: I personally reviewed and interpreted this imaging study as follows: ECG Data EKG #1: Attestation: I personally reviewed and interpreted this ECG as follows: ECG completion date: 03/13/25 ECG completion time: 14:53 EKG Interpretation: normal rate, sinus rhythm, no ectopy, no ST changes, normal QRS, normal QT, NL axis and no acute changes Discharge Plan Discharge Clinical Impression: Hypotension, Acute dehydration, Syncope and collapse, Medication side effect Patient Disposition: Home Condition: Stable Instructions: Syncope (ED) Patient Language: Icelandic Prescriptions: No Action losartan-hydrochlorothiazide 50-12.5 mg tablet 1.5 tablet PO DAILY Adult 50 Plus Probiotic 4 billion cell capsule 4,000 mmu cells PO DAILY Rx Instructions: administer with a meal magnesium 200 mg tablet 200 mg PO DAILY omega 1-ltl-lyd-fish oil [Fish Oil] 60-90-500 mg capsule 1 cap PO DAILY calcium carbonate [Calcium 600] 600 mg calcium (1,500 mg) tablet 600 mg PO DAILY vitamin D32-drdsg acid 500-400 mcg tablet 1 tablet PO DAILY Rx Instructions: administer with a meal atorvastatin 40 mg tablet 40 mg PO HS estradiol 1 mg tablet 1 mg PO DAILY omeprazole 20 mg capsule,delayed release(DR/EC) 20 mg PO DAILY dicyclomine 10 mg capsule 10 mg PO DAILY PRN (Reason: Abdominal Discomfort) escitalopram oxalate 10 mg tablet 10 mg PO DAILY Follow-up/Referrals: Nazario Carranza MD [Primary Care Provider, Internal Medicine] Time of Disposition: 16:22
[2025-03-13 14:45] VITALS: BP 143/81; PULSE 62; RESP 18; TEMP 36.6; O2SAT 95
--- NOTE | 2025-03-13 14:45 | ECG_ITS ---
Test Date: 2025-03-13 14:55:50 Measurements Intervals [place] Rate: 60 P: 45 HI: 160 QRS: 11 QRSD: 79 T: 51 QT: 412 QTc: 414 Interpretive Statements SINUS RHYTHM LOW QRS VOLTAGE IN PRECORDIAL LEADS BASELINE ARTIFACT- I, II, III, AVR, AVL, AVF, V1-V6 BORDERLINE ECG Compared to ECG 11/11/2024 19:46:33 NO SIGNIFICANT CHANGE Electronically Signed On 03-13-2025 16:08:48 CDT by Edwin Hopkins D.O.
[2025-03-13 15:00] VITALS: BP 104/65; PULSE 61; RESP 15; O2SAT 97
[2025-03-13 15:07] LABS: Hematocrit 38.3 % (35.0-49.0); Hemoglobin 12.1 g/dL (12.0-15.0); Immature Granulocyte Percent A 0.4 % (0.0-0.0); Lymphocytes Absolute Auto 2.90 K/mm3 (1.10-4.50); Mean Corpuscular HGB Conc 31.6 g/dL (32-36); Mean Corpuscular Hemoglobin 27.3 pg (27.0-31.0); Mean Corpuscular Volume 86.5 fL (78.0-102.0); Nucleated Red Blood Cells Absolute Auto 0.00 K/mm3 (0.00-0.00); Nucleated Red Blood Cells Perc 0.0 % (0-0.0); Platelet Count Result 316 K/mm3 (150-420); Red Blood Count 4.43 M/mm3 (4.20-5.40); White Blood Count 11.2 K/mm3 (4.8-10.8)
[2025-03-13 15:17] LABS: Add Urine Microscopic? NO; Appearance Urine Clear (Clear); Glucose Urine UA Negative (Negative); Leukocyte Esterase Ur Negative LEU/UL (Negative); Nitrate Urine Negative (Negative); Specific Grav Ur 1.015 (1.010-1.020)
[2025-03-13 15:18] LABS: Alanine Aminotransferase 17 U/L (6-35); Albumin Level 3.8 g/dL (3.5-5.1); Alkaline Phosphatase 69 U/L (38-126); Anion Gap 8 mmol/L (4-12); Aspartate Amino Transferase 20 U/L (14-36); Bilirubin,Total 0.4 mg/dL (0.2-1.3); Blood Urea Nitrogen 27 mg/dL (7-17); Calcium 8.8 mg/dL (8.4-10.2); Carbon Dioxide 29 mmol/L (22-30); Chloride 100 mmol/L (98-107); Estimated CRCL calculation 75 ml/min; Estimated Glomerular Filt Rate > 60; Glucose 213 mg/dL (65-110); Osmolality Calculated 295 mOsm/kg (285-295); Potassium 4.1 mmol/L (3.4-5.0); Sodium 137 mmol/L (137-145); Total Protein 6.6 g/dL (6.3-8.2)
[2025-03-13 15:22] LABS: INR 1.0; Partial Thromboplastin Time 21.0 Sec (23.9-30.70); Prothrombin Time 10.9 Seconds (9.50-12.1)
[2025-03-13 15:30] VITALS: BP 102/71; PULSE 59; RESP 19; O2SAT 97
[2025-03-13 15:30] LABS: NT Pro B Type Natriuretic Pept 84 pg/mL (19.9-100); Troponin I < 0.012 ng/mL (0.000-0.034)
[2025-03-13] MEDS: SODIUM CHLORIDE 0.9% IV 500 ML 999 ML IV CONT (15:56)
[2025-03-13 16:00] VITALS: BP 103/74; PULSE 58; RESP 17; O2SAT 96
[2025-03-13 16:30] VITALS: BP 110/79; PULSE 62; RESP 20; O2SAT 96
[2025-03-13 16:35] VITALS: BP 110/79; PULSE 62; RESP 20; TEMP 36.7; O2SAT 96
== END 2025-03-13 16:35 | disposition home or self-care (01) ==
PROVIDERS: Emergency Provider Emergency Medicine; PCP Internal Medicine
DX: E86.0 Dehydration (principal); R55 Syncope and collapse; T38.0X5A Adverse effect of glucocorticoids and synthetic analogues, initial encounter; I10 Essential (primary) hypertension; E78.5 Hyperlipidemia, unspecified; I95.9 Hypotension, unspecified
CPT/HCPCS: 36415; 70450; 71046; 80053; 81003; 83880; 84484; 85025; 85380; 85610; 85730; 93005; 99284; J7040

== ENCOUNTER 2025-04-13 14:28 | Outpatient (CLI) | payer OTHER, SELFPAY ==
--- NOTE | ~2025-04-13 | XR_ITS ---
EXAMINATION: XR wrist LT min 3V, 04/13/2025 14:30 CDT HISTORY: L WRIST INJURY COMPARISON: No comparisons available. Findings: No acute fracture or malalignment. No significant degenerative changes. Soft tissues unremarkable. Impression: No acute fracture or malalignment. Reviewed, dictated and finalized at location P. Impression: No acute fracture or malalignment.
== END 2025-04-13 14:29 | disposition home or self-care (01) ==
PROVIDERS: PCP Internal Medicine; Visit Provider Nurse Practitioner Family
DX: S69.92XA Unspecified injury of left wrist, hand and finger(s), initial encounter (principal)
CPT/HCPCS: 73110

== ENCOUNTER 2025-04-15 11:46 | Outpatient (CLI) | payer OTHER, SELFPAY ==
--- NOTE | ~2025-04-15 | CT_ITS ---
EXAMINATION: CT wrist LT wo con DATE: 04/15/2025 12:04 INDICATION: Left wrist injury and pain. TECHNIQUE: Computed tomography (CT) of the left wrist was performed without intravenous contrast. Automated exposure control and iterative reconstruction technique were employed. The dose-length product was 313.58 mGy-cm. COMPARISON: Left wrist radiographs 04/13/2025 FINDINGS: Alignment is normal. No fracture. There is mild osteoarthritis of first carpometacarpal joint and triscaphe joint. There is degenerative cystic change in proximal lunate. IMPRESSION: 1. Mild polyarticular osteoarthritis. Reviewed, dictated and finalized at location E.
== END 2025-04-15 11:47 | disposition home or self-care (01) ==
LOC: CHSIMG 11:47
PROVIDERS: PCP Internal Medicine; Visit Provider Nurse Practitioner Family
DX: S69.92XA Unspecified injury of left wrist, hand and finger(s), initial encounter (principal); M19.032 Primary osteoarthritis, left wrist
CPT/HCPCS: 73200

== ENCOUNTER 2025-07-04 07:35 | Day surgery (SDC) | payer OTHER, SELFPAY ==
[2025-06-22 13:51] VITALS: BMI 33.2
[2025-07-04 08:30] VITALS: BP 134/80; PULSE 66; RESP 16; TEMP 36.7; O2SAT 97
--- NOTE | 2025-07-04 09:03 | WPDANESEPPF ---
Anes - Initial Pre Proc Eval Procedure: Operation Date: 07/04/25 09:30 Proposed Procedures p Esophagogastroduodenoscopy, Possible Dilation - Rayshawn Samuel DO Date/Time: 07/04/25 09:03 Surgeon: Rayshawn Samuel DO Pre Op Diagnosis: Dysphagia Patient Data Age: 59 Gender: F Height: 1.68 m Weight: 93 kg Last Vital Signs Temp 98.1 F 07/04/25 08:30 Pulse 66 07/04/25 08:30 Resp 16 07/04/25 08:30 BP 134/80 07/04/25 08:30 Pulse Ox 97 07/04/25 08:30 O2 Del Method Room Air 07/04/25 08:30 Allergies Allergy/AdvReac Type Severity Reaction Status Date / Time latex Allergy Rash Verified 07/04/25 08:36 aluminum hydroxide (From AdvReac Mild GI Verified 07/04/25 08:36 Mylanta) Cocktail- Confusion/Tongue Swelling atropine (From ) AdvReac Mild GI Verified 07/04/25 08:36 Cocktail- Confusion/Tongue Swelling calcium carbonate (From AdvReac Mild GI Verified 07/04/25 08:36 Mylanta) Cocktail- Confusion/Tongue Swelling hyoscyamine (From ) AdvReac Mild GI Verified 07/04/25 08:36 Cocktail- Confusion/Tongue Swelling lidocaine AdvReac Mild GI Verified 07/04/25 08:36 Cocktail- Confusion/Tongue Swelling magnesium hydroxide (From AdvReac Mild GI Verified 07/04/25 08:36 Mylanta) Cocktail- Confusion/Tongue Swelling phenobarbital (From ) AdvReac Mild GI Verified 07/04/25 08:36 Cocktail- Confusion/Tongue Swelling scopolamine (From ) AdvReac Mild GI Verified 07/04/25 08:36 Cocktail- Confusion/Tongue Swelling simethicone (From Mylanta) AdvReac Mild GI Verified 07/04/25 08:36 Cocktail- Confusion/Tongue Swelling adhesive AdvReac Unknown RASH Verified 07/04/25 08:36 moxifloxacin AdvReac Unknown N&V Verified 07/04/25 08:36 GI COCKTAIL AdvReac Mild CONFUSION, Uncoded 04/29/25 11:33 TONGUE SWELLING Home Medications ?Medication ?Instructions ?Recorded ?Confirmed ?Type atorvastatin 40 mg tablet 40 mg PO HS 05/20/21 12/22/25 History dicyclomine 10 mg capsule 10 mg PO DAILY PRN Abdominal 11/30/20 07/04/25 History Discomfort estradiol 1 mg tablet 1 mg PO DAILY 11/30/20 07/04/25 History omeprazole 20 mg capsule,delayed 20 mg PO DAILY 11/30/20 07/04/25 History release losartan 50 mg-hydrochlorothiazide 1.5 tablet PO DAILY 12/10/21 07/04/25 History 12.5 mg tablet calcium carbonate (Calcium 600) 600 mg PO DAILY 10/09/22 07/04/25 History magnesium 200 mg tablet 200 mg PO DAILY 10/09/22 07/04/25 History omega 3-nht-bgn-fish oil 60 mg-90 1 cap PO DAILY 10/09/22 07/04/25 History mg-500 mg capsule (Fish Oil) escitalopram oxalate 10 mg tablet 10 mg PO DAILY 08/08/23 07/04/25 History vitamin B12 500 mcg-folic acid 400 1 tablet PO DAILY 12/01/24 07/04/25 History mcg tablet Patient hx anesthesia problems: none Family hx anesthesia problems: none Results Review: All pre-operative results and documents have been reviewed as part of the pre-operative evaluation. [facility] Past Medical History Medical History History of stomach ulcers Hx of hyperlipidemia Hx of chronic arthritis Hx of seasonal allergies IBS (irritable bowel syndrome) RUQ pain Mixed irritable bowel syndrome Fullness after eating Postprandial nausea Hiatal hernia Hypertension GERD (gastroesophageal reflux disease) Hyperlipidemia Surgical History Surgical History Hx of colonoscopy History of back surgery Hx of tonsillectomy H/O rectocele repair H/O: hysterectomy H/O vein stripping Family History Family History Mother Depression Hypertension Sibling Depression Hypertension Sibling Depression Hypertension Father Heart problem Grandparent Depression Social History Social History Smoking status: Never smoker Alcohol intake: never Alcohol use details: 2/MONTH Substance use: never Substance use type: does not use Lack of Transportation: No Lack of Food: Never True Current Housing: I Have Housing Concerned About Future Housing: No Difficulty Paying Gas/Electric Bills: No Difficulty Paying for Meds: No Currently Unemployed: No Education: High School Diploma/GED Difficulty w/ Childcare or Family Care: No Living arrangements: with family Gender identity (if verbalized by the patient): Female Spiritual care concerns: No Anes - Eval Final PreProcedure Day of Procedure 07/04/25 09:03 Heart: regular rate and rhythm Lungs: clear to auscultation Airway: Mallampati scale class II Neurological: alert and oriented Last oral intake: >/= 8 hours ASA classification: II Anesthetic plan: proceed Anesthesia type and monitoring: general Results Review: All pre-operative results and documents have been reviewed as part of the pre-operative evaluation. Informed Consent: The patient's anesthetic plan and its attendant risks and benefits were discussed with the patient/family/POA. Questions were solicited and answers provided to the satisfaction of the patient/family/POA.
[2025-07-04] MEDS: LACTATED RINGERS 1,000 ML 150 ML IV CONT ×2 (09:30→10:37)
--- NOTE | 2025-07-04 09:37 | PM.IMHP2 ---
H&P: HPI History of Present Illness Date/Time: 07/04/25 09:37 Chief Complaint: dysphagia Narrative: 59 yo woman presents for EGD. She has been experiencing difficulty swallowing solids and liquids. She has GERD symptoms and takes omeprazole. Review of Systems Review of Systems: All systems reviewed & are unremarkable except as noted in HPI and below Constitutional: Constitutional: Denies chills, Denies fever(s), Denies headache(s) and Denies weight loss Eyes: Eyes: Denies change in vision ENT: Denies dizziness, Denies headache(s), Denies neck mass and Denies throat swelling Cardiovascular: Cardiovascular: Denies chest pain, Denies lightheadedness and Denies dyspnea Respiratory: Respiratory: Denies cough, Denies dyspnea and Denies wheezing Gastrointestinal: Gastrointestinal: Denies abdominal pain, Denies change in bowel habits, Denies nausea and Denies vomiting Genitourinary: Genitourinary: Denies hematuria and Denies dysuria Musculoskeletal: Musculoskeletal: Reports as per HPI Integumentary/Breasts: Skin/Breast: Reports as per HPI Neurologic: Denies dizziness and Denies headache(s) Allergic/Immunologic: Allergic/Immunologic: Denies throat swelling and Denies wheezing PMFSH Past Medical History Medical History History of stomach ulcers Hx of hyperlipidemia Hx of chronic arthritis Hx of seasonal allergies IBS (irritable bowel syndrome) RUQ pain Mixed irritable bowel syndrome Fullness after eating Postprandial nausea Hiatal hernia Hypertension GERD (gastroesophageal reflux disease) Hyperlipidemia Surgical History Surgical History Hx of colonoscopy History of back surgery Hx of tonsillectomy H/O rectocele repair H/O: hysterectomy H/O vein stripping Family History Family History Mother Depression Hypertension Sibling Depression Hypertension Sibling Depression Hypertension Father Heart problem Grandparent Depression Social History Social History Smoking status: Never smoker Alcohol intake: never Alcohol use details: 2/MONTH Substance use: never Substance use type: does not use Lack of Transportation: No Lack of Food: Never True Current Housing: I Have Housing Concerned About Future Housing: No Difficulty Paying Gas/Electric Bills: No Difficulty Paying for Meds: No Currently Unemployed: No Education: High School Diploma/GED Difficulty w/ Childcare or Family Care: No Living arrangements: with family Gender identity (if verbalized by the patient): Female Spiritual care concerns: No Meds Home Medications and Allergies Home Medications ?Medication ?Instructions ?Recorded ?Confirmed ?Type atorvastatin 40 mg tablet 40 mg PO HS 11/30/20 07/04/25 History dicyclomine 10 mg capsule 10 mg PO DAILY PRN Abdominal 11/30/20 07/04/25 History Discomfort estradiol 1 mg tablet 1 mg PO DAILY 11/30/20 07/04/25 History omeprazole 20 mg capsule,delayed 20 mg PO DAILY 11/30/20 07/04/25 History release losartan 50 mg-hydrochlorothiazide 1.5 tablet PO DAILY 12/10/21 07/04/25 History 12.5 mg tablet calcium carbonate (Calcium 600) 600 mg PO DAILY 10/09/22 07/04/25 History magnesium 200 mg tablet 200 mg PO DAILY 10/09/22 07/04/25 History omega 2-qhl-yzb-fish oil 60 mg-90 1 cap PO DAILY 10/09/22 07/04/25 History mg-500 mg capsule (Fish Oil) escitalopram oxalate 10 mg tablet 10 mg PO DAILY 08/08/23 07/04/25 History vitamin B12 500 mcg-folic acid 400 1 tablet PO DAILY 12/01/24 07/04/25 History mcg tablet Allergies Allergy/AdvReac Type Severity Reaction Status Date / Time latex Allergy Rash Verified 07/04/25 08:36 aluminum hydroxide (From AdvReac Mild GI Verified 07/04/25 08:36 Mylanta) Cocktail- Confusion/Tongue Swelling atropine (From ) AdvReac Mild GI Verified 07/04/25 08:36 Cocktail- Confusion/Tongue Swelling calcium carbonate (From AdvReac Mild GI Verified 07/04/25 08:36 Mylanta) Cocktail- Confusion/Tongue Swelling hyoscyamine (From ) AdvReac Mild GI Verified 07/04/25 08:36 Cocktail- Confusion/Tongue Swelling lidocaine AdvReac Mild GI Verified 07/04/25 08:36 Cocktail- Confusion/Tongue Swelling magnesium hydroxide (From AdvReac Mild GI Verified 07/04/25 08:36 Mylanta) Cocktail- Confusion/Tongue Swelling phenobarbital (From ) AdvReac Mild GI Verified 07/04/25 08:36 Cocktail- Confusion/Tongue Swelling scopolamine (From ) AdvReac Mild GI Verified 07/04/25 08:36 Cocktail- Confusion/Tongue Swelling simethicone (From Mylanta) AdvReac Mild GI Verified 07/04/25 08:36 Cocktail- Confusion/Tongue Swelling adhesive AdvReac Unknown RASH Verified 07/04/25 08:36 moxifloxacin AdvReac Unknown N&V Verified 07/04/25 08:36 GI COCKTAIL AdvReac Mild CONFUSION, Uncoded 04/29/25 11:33 TONGUE SWELLING Vital Signs Vital Signs - 24 hr 07/04/25 08:30 Temperature 98.1 F Pulse Rate 66 Respiratory Rate 16 Blood Pressure 134/80 Pulse Oximetry 97 Oxygen Delivery Room Air Exam Const: General: no acute distress and alert Orientation/consciousness: patient oriented x3 HENMT: Head: normocephalic and atraumatic Ears: hearing grossly normal bilaterally Face/Nose/Sinus: Normal nares present Mouth: Yes Normal oral and palatal mucosa present Eyes: Periorbital: periorbital findings normal Sclera: sclerae normal EOM: EOMs intact bilaterally Neck: Neck: normal visual inspection, no lymphadenopathy and trachea midline Chest: Chest palpation & inspection: normal inspection of the chest Resp: Effort & Inspection: normal respiratory effort Auscultation: clear to auscultation bilaterally Cardio: Jugular venous distension: no JVD Rate: regular rate Rhythm: regular rhythm Heart sounds: S1 normal heart sound present and S2 normal heart sound present Peripheral pulses: Peripheral pulses 2+ throughout GI: Inspection: normal to inspection GI Palp: Yes Soft to palpation, No Tenderness to palpation present (GI), No Guarding due to palpation present (GI) and No Rebound tenderness present Percussion: Yes normal to percussion Auscultation: normal bowel sounds : General: Yes no CVA tenderness Back/Spine/Pelvis: Back: no CVA tenderness Neuro: General: patient oriented x3, no focal motor deficits and CN's II-XI intact bilaterally Cognition (Neuro): normal cognition Speech: normal speech Motor exam (neuro): 5/5 motor strength present throughout Extrem: General: capillary refill normal and no clubbing, cyanosis or edema Assessment and Plan Assessment and plan (1) Dysphagia: Qualifiers: Dysphagia type: esophageal phase Qualified Code(s): R13.19 - Other dysphagia Code(s): R13.10 - Dysphagia, unspecified Status: Acute Assessment and Plan: I have recommended EGD with possible dilation. I have discussed the procedure, risks, benefits, and alternatives. Questions were answered. Patient is agreeable to proceed. (2) GERD (gastroesophageal reflux disease): Qualifiers: Esophagitis presence: without esophagitis Qualified Code(s): K21.9 - Gastro-esophageal reflux disease without esophagitis Code(s): K21.9 - Gastro-esophageal reflux disease without esophagitis Status: Acute
--- NOTE | 2025-07-04 09:58 | WPDANESPN ---
Anes - Prog Note Post-Op Date/Time: 07/04/25 09:58 Vital Signs: Last Vital Signs Temp 98.1 F 07/04/25 08:30 Pulse 66 07/04/25 08:30 Resp 16 07/04/25 08:30 BP 134/80 07/04/25 08:30 Pulse Ox 97 07/04/25 08:30 O2 Del Method Room Air 07/04/25 08:30 Pain Score (VAS): no Patient Feedback: Patient satisfied with anesthetic care.
[2025-07-04 10:07] VITALS: BP 118/77; PULSE 67; RESP 18; O2SAT 95
[2025-07-04 10:11] VITALS: BP 131/80; PULSE 56; RESP 14; O2SAT 97
[2025-07-04 10:22] VITALS: BP 134/76; PULSE 55; RESP 14; O2SAT 100
== END 2025-07-04 10:42 | disposition home or self-care (01) ==
PROVIDERS: PCP Internal Medicine; Visit Provider Surgery
PROC: 0DJ08ZZ Inspection of Upper Intestinal Tract, Via Natural or Artificial Opening Endoscopic (ICD-10-PCS; CPT 43239; principal; 2025-07-04 09:30)
DX: R13.10 Dysphagia, unspecified (principal); K21.9 Gastro-esophageal reflux disease without esophagitis; K31.7 Polyp of stomach and duodenum; D13.1 Benign neoplasm of stomach
CPT/HCPCS: 43239

== ENCOUNTER 2025-07-04 07:51 | Outpatient (NON) | payer OTHER, SELFPAY ==
--- NOTE | 2025-07-04 | S_PTH ---
PATIENT: Koki Magallon LOC: [facility] #:[id number] AGE/SX: 59/F ROOM: RE07/04/[address]: Rayshawn Samuel DO : 1965 BED: DIS: 07/04/2025 SPEC #: [id number] RECD: 07/05/25 08:11 STATUS: GLADYS RECurry #: [id number] DAVID: 07/04/25 00:[address]: Rayshawn Samuel DEPT: [facility] Surgical RECD BY: Yoel Keller ENTERED: 07/05/25 08:13 SP TYPE: Surgical OTHR DR: Nazario Carranza MD Tissues: A - Gastric Polyp B - Gastric Polyp Procedures: Hematoxylin and Eosin Stain Gross and Microscopic Level 4
== END 2025-07-04 07:52 | disposition home or self-care (01) ==
PROVIDERS: PCP Internal Medicine; Visit Provider Surgery
DX: R13.10 Dysphagia, unspecified (principal)
CPT/HCPCS: 88305